=== PATIENT | female | born 1995 | race Caucasian/White ===

== ENCOUNTER 2017-01-31 18:49 | Observation (INO) | payer BC ==
[2017-01-31] MEDS ORDERED: SODIUM CHLORIDE 0.9% 1,000 ML IV STA (20:21)
[2017-01-31] MEDS ORDERED: RX INFO: IV CONTRAST WAS GIVEN 1 EACH MISC MISCELLANE PRN (20:21)
[2017-01-31] MEDS ORDERED: ONDANSETRON 4 MG/2 ML VIAL IVP STA (20:21)
[2017-01-31 20:55] LABS: Basophils # (A) 0.1 k/uL (0-0.2); Basophils % (A) 1 %; CH 31.7; CHCM 35.2; Eosinophils # (A) 0.5 k/uL (0-0.7); Eosinophils % (A) 4 %; HCT 43.4 % (34.0-46.0); HDW 2.86; HGB 14.6 gm/dL (11.4-16.0); Luc # (Auto) 0.24; Luc % (Auto) 2; Lymphocytes # (A) 2.8 k/uL (1.0-4.8); Lymphocytes % (A) 24 %; MCH 30.3 pg (25.0-35.0); MCHC 33.5 g/dL (31.0-37.0); MCV 90.5 fL (80.0-100.0); Monocytes # (A) 0.8 k/uL (0-1.0); Monocytes % (A) 7 %; Neutrophils % (A) 61 %; RDW 13.3 % (11.5-15.5); WBC 11.4 k/uL (3.8-10.6); WBC (Perox) 11.57
[2017-01-31 21:03] LABS: ALT 48 U/L (9-52); AST 30 U/L (14-36); Alkaline Phosphatase 82 U/L (38-126); Amylase <30 U/L (30-110); Anion Gap 11 mmol/L; Blood Urea Nitrogen 15 mg/dL (7-17); Calcium 9.5 mg/dL (8.4-10.2); Carbon Dioxide 27 mmol/L (22-30); Chloride 105 mmol/L (98-107); Glucose 86 mg/dL (74-99); Non-African American GFR(MDRD) >60 (>60 ml/min/1.73 sqM); Potassium 3.9 mmol/L (3.5-5.1); Sodium 143 mmol/L (137-145); Total Bilirubin 0.5 mg/dL (0.2-1.3); Total Protein 7.6 g/dL (6.3-8.2)
[2017-01-31 21:06] LABS: Appearance,Urine Clear (Clear); Bilirubin,Urine Negative (Negative); Glucose,Urine (UA) Negative (Negative); Ketones,Urine 1+ (Negative); Nitrite,Urine Negative (Negative); PH, Urine 5.5 (5.0-8.0); Protein,Urine Trace (Negative)
[2017-01-31 21:07] LABS: Leukocyte Esterase,Urine Trace (Negative); Mucus,Urine Occasional /hpf; Particle Count 8756; RBC,Urine 3 /hpf (0-5); Squamous Epithelial Cell,Urine 7 /hpf (0-4); UA Billing (MACRO vs. MICRO) MICRO; WBC,Urine 3 /hpf (0-5)
--- NOTE | 2017-01-31 21:13 | ED ---
Abdominal Pain HPI - General Source: patient, RN notes reviewed Mode of arrival: ambulatory Limitations: no limitations <Robe Sheldon - Last Filed: 01/31/17 22:05> <Fabrice Gonzales - Last Filed: 01/31/17 22:17> - General Chief Complaint: Abdominal Pain Stated Complaint: POSS APPENDIX Time Seen by Provider: 01/31/17 20:21 - History of Present Illness Initial Comments: 21-year-old female presented emergency Department from Dr. Moon's office to rule out appendicitis. Patient states that she's had right lower quadrant abdominal pain nausea vomiting since Tuesday night. She states that she generalized feels ill. Patient has no reported fever. Patient does complain of pain and right lower also in epigastric region. Denies heartburn, chest pain , shortness breath, diarrhea constipation. Denies a chance , dysuria or hematuria. (Robe Sheldon) - Related Data Home Medications Medication Instructions Recorded Confirmed No Known Home Medications [No 01/31/17 01/31/17 Known Home Medications] Allergies Allergy/AdvReac Type Severity Reaction Status Date / Time No Known Allergies Allergy Verified 01/31/17 20:27 Review of Systems ROS Other: All systems not noted in ROS Statement are negative. <Robe Sheldon - Last Filed: 01/31/17 22:05> ROS Other: All systems not noted in ROS Statement are negative. <Fabrice Gonzales - Last Filed: 01/31/17 22:17> ROS Statement: Those systems with pertinent positive or pertinent negative responses have been documented in the HPI. Past Medical History Past Medical History: No Reported History History of Any Multi-Drug Resistant Organisms: None Reported Past Surgical History: No Surgical Hx Reported Past Psychological History: No Psychological Hx Reported Smoking Status: Never smoker Past Alcohol Use History: Occasional Past Drug Use History: None Reported <Robe Sheldon - Last Filed: 01/31/17 22:05> General Exam Limitations: no limitations General appearance: alert, in no apparent distress Head exam: Present: atraumatic, normocephalic, normal inspection Respiratory exam: Present: normal lung sounds bilaterally. Absent: respiratory distress, wheezes, rales, rhonchi, stridor Cardiovascular Exam: Present: regular rate, normal rhythm, normal heart sounds. Absent: systolic murmur, diastolic murmur, rubs, gallop, clicks GI/Abdominal exam: Present: soft, tenderness (moderate epigastric and right lower quadrant tenderness), normal bowel sounds. Absent: distended, guarding, rebound, rigid Back exam: Absent: CVA tenderness (R), CVA tenderness (L) Skin exam: Present: warm, dry, intact, normal color. Absent: rash <Robe Sheldon - Last Filed: 01/31/17 22:05> Course <Robe Sheldon - Last Filed: 01/31/17 22:05> <Fabrice Gonzales - Last Filed: 01/31/17 22:17> Vital Signs 01/31/17 01/31/17 19:51 20:49 Temperature 98.7 F Pulse Rate 81 72 Respiratory 16 18 Rate Blood Pressure 127/80 127/75 O2 Sat by Pulse 100 100 Oximetry - Reevaluation(s) Reevaluation #1: 01/31/17 I did personally do a [id number]-to-lmbw evaluation the patient did discuss findings the patient and her family members. Patient does demonstrate evidence of appendicitis with pain since 3 days ago right lower quadrant she is tenderness right lower quadrant with evidence of a Rovsing sign. She does a low -grade white blood cell count and CT evidence of acute appendicitis with inflammation but no abscess formation. I did discuss the case with Dr. Ohara. Patient be admitted patient IV antibiotics and fluids with plans for appendectomy in the a.m. (Fabrice Gonzales) Medical Decision Making - Lab Data Result diagrams: 01/31/17 20:37 01/31/17 20:37 <Robe Sheldon - Last Filed: 01/31/17 22:05> - Lab Data Result diagrams: 01/31/17 20:37 01/31/17 20:37 <Fabrice Gonzales - Last Filed: 01/31/17 22:17> - Lab Data Lab Results 01/31/17 01/31/17 01/31/17 Range/Units 20:37 20:37 20:37 WBC 11.4 H (3.8-10.6) k/uL RBC 4.80 (3.80-5.40) m/uL Hgb 14.6 (11.4-16.0) gm/dL Hct 43.4 (34.0-46.0) % MCV 90.5 (80.0-100.0) fL MCH 30.3 (25.0-35.0) pg MCHC 33.5 (31.0-37.0) g/dL RDW 13.3 (11.5-15.5) % Plt Count 395 (150-450) k/uL Neutrophils % 61 % Lymphocytes % 24 % Monocytes % 7 % Eosinophils % 4 % Basophils % 1 % Neutrophils # 7.0 (1.3-7.7) k/uL Lymphocytes # 2.8 (1.0-4.8) k/uL Monocytes # 0.8 (0-1.0) k/uL Eosinophils # 0.5 (0-0.7) k/uL Basophils # 0.1 (0-0.2) k/uL Sodium 143 (137-145) mmol/L Potassium 3.9 (3.5-5.1) mmol/L Chloride 105 (98-107) mmol/L Carbon Dioxide 27 (22-30) mmol/L Anion Gap 11 mmol/L BUN 15 (7-17) mg/dL Creatinine 0.80 (0.52-1.04) mg/dL Est GFR (MDRD) Af Amer >60 (>60 ml/min/1.73 sqM) Est GFR (MDRD) Non-Af >60 (>60 ml/min/1.73 sqM) Glucose 86 (74-99) mg/dL Calcium 9.5 (8.4-10.2) mg/dL Total Bilirubin 0.5 (0.2-1.3) mg/dL AST 30 (14-36) U/L ALT 48 (9-52) U/L Alkaline Phosphatase 82 (38-126) U/L Total Protein 7.6 (6.3-8.2) g/dL Albumin 4.4 (3.5-5.0) g/dL Amylase <30 L (30-110) U/L Lipase 35 (23-300) U/L Urine Color Urine Appearance (Clear) Urine pH (5.0-8.0) Ur Specific [place] (1.001-1.035) Urine Protein (Negative) Urine Glucose (UA) (Negative) Urine Ketones (Negative) Urine Blood (Negative) Urine Nitrite (Negative) Urine Bilirubin (Negative) Urine Urobilinogen (<2.0) mg/dL Ur Leukocyte Esterase (Negative) Urine RBC (0-5) /hpf Urine WBC (0-5) /hpf Ur Squamous Epith Cells (0-4) /hpf Urine Mucus (None) /hpf Urine HCG, Qual Not Detected (Not Detectd) 01/31/17 Range/Units 20:37 WBC (3.8-10.6) k/uL RBC (3.80-5.40) m/uL Hgb (11.4-16.0) gm/dL Hct (34.0-46.0) % MCV (80.0-100.0) fL MCH (25.0-35.0) pg MCHC (31.0-37.0) g/dL RDW (11.5-15.5) % Plt Count (150-450) k/uL Neutrophils % % Lymphocytes % % Monocytes % % Eosinophils % % Basophils % % Neutrophils # (1.3-7.7) k/uL Lymphocytes # (1.0-4.8) k/uL Monocytes # (0-1.0) k/uL Eosinophils # (0-0.7) k/uL Basophils # (0-0.2) k/uL Sodium (137-145) mmol/L Potassium (3.5-5.1) mmol/L Chloride (98-107) mmol/L Carbon Dioxide (22-30) mmol/L Anion Gap mmol/L BUN (7-17) mg/dL Creatinine (0.52-1.04) mg/dL Est GFR (MDRD) Af Amer (>60 ml/min/1.73 sqM) Est GFR (MDRD) Non-Af (>60 ml/min/1.73 sqM) Glucose (74-99) mg/dL Calcium (8.4-10.2) mg/dL Total Bilirubin (0.2-1.3) mg/dL AST (14-36) U/L ALT (9-52) U/L Alkaline Phosphatase (38-126) U/L Total Protein (6.3-8.2) g/dL Albumin (3.5-5.0) g/dL Amylase (30-110) U/L Lipase (23-300) U/L Urine Color Yellow Urine Appearance Clear (Clear) Urine pH 5.5 (5.0-8.0) Ur Specific [place] 1.030 (1.001-1.035) Urine Protein Trace H (Negative) Urine Glucose (UA) Negative (Negative) Urine Ketones 1+ H (Negative) Urine Blood Negative (Negative) Urine Nitrite Negative (Negative) Urine Bilirubin Negative (Negative) Urine Urobilinogen 2.0 (<2.0) mg/dL Ur Leukocyte Esterase Trace H (Negative) Urine RBC 3 (0-5) /hpf Urine WBC 3 (0-5) /hpf Ur Squamous Epith Cells 7 H (0-4) /hpf Urine Mucus Occasional H (None) /hpf Urine HCG, Qual (Not Detectd) Disposition <Robe Sheldon - Last Filed: 01/31/17 22:05> <Fabrice Gonzales - Last Filed: 01/31/17 22:17> Clinical Impression: Acute appendicitis Disposition: ADMITTED IP TO THIS HOSP Condition: Stable Referrals: Telma Moon MD [Primary Care Provider] - 1-2 days
--- NOTE | 2017-01-31 22:02 | CT ---
EXAMINATION TYPE: CT abdomen pelvis w con DATE OF EXAM: 01/31/2017 COMPARISON: NONE HISTORY: RLQ pain CT DLP: 1387.6 mGycm Automated exposure control for dose reduction was used. TECHNIQUE: Helical acquisition of images was performed from the lung bases through the pelvis. CONTRAST: Performed without Oral Contrast and with IV Contrast, patient injected with 100 mL of Omnipaque 300. FINDINGS: Lung bases are clear of consolidation. There is mild subsegmental atelectasis at the left lung base. There is no pleural effusion. Liver spleen pancreas gallbladder appear normal. Bile ducts are not dilated. There is no adrenal mass. Kidneys appear normal. There is no retroperitoneal adenopathy. There is no ascites. Bladder distends smoothly. There are small bilateral ovarian cysts. I see no intestinal wall thickening. There is thickening of the appendix with surrounding mild inflammatory changes. I see no bony destructive process. IMPRESSION: INFLAMMATORY CHANGES AND THICKENING OF THE APPENDIX CONSISTENT WITH ACUTE APPENDICITIS. NO ABSCESS.
[2017-01-31] MEDS ORDERED: PIPERACILLIN-TAZOBACTAM 3.375 GM in DEXTROSE/WATER 1 50ML.BAG IVPB STA (22:04)
[2017-01-31] MEDS ORDERED: ONDANSETRON 4 MG/2 ML VIAL IVP PRN (22:06)
[2017-01-31] MEDS ORDERED: NALOXONE 0.4 MG/ML 1 ML VIAL IV PRN (22:06)
[2017-01-31] MEDS ORDERED: HYDROmorphone 0.5 MG/0.5 ML SYRINGE IVP PRN (22:06)
[2017-01-31] MEDS ORDERED: HYDROcodone/APAP 5-325MG 1 EACH TAB PO PRN (22:06)
[2017-01-31 23:17] VITALS: BMI 35.6
[2017-02-01] MEDS ORDERED: HEPARIN SODIUM,PORCINE 5,000 UNIT/ML 1 ML VIAL SQ STA (06:04)
[2017-02-01] MEDS ORDERED: IV FLUID CONTINUATION 1,000 ML IV ONE (06:13)
[2017-02-01] MEDS ORDERED: ONDANSETRON 4 MG/2 ML VIAL IVP ONE ×2 (06:20→07:52)
[2017-02-01] MEDS ORDERED: DEXAMETHASONE SOD PHOS (MDV) 100 MG/10 ML VIAL IVP ONE (06:21)
[2017-02-01] MEDS ORDERED: SUCCINYLCHOLINE CHLORIDE 100 MG/5 ML SYR IV ONE (06:25)
[2017-02-01] MEDS ORDERED: HEPARIN SODIUM,PORCINE 5,000 UNIT/ML 1 ML VIAL ONE (06:25)
[2017-02-01] MEDS ORDERED: fentaNYL (PF) 50 MCG/ML 2 ML AMP ONE (06:25)
[2017-02-01] MEDS ORDERED: MIDAZOLAM 2 MG/2 ML VIAL ONE (06:25)
[2017-02-01] MEDS ORDERED: ROCURONIUM BROMIDE 10 MG/ML 10 ML VIAL IV ONE (06:25)
[2017-02-01] MEDS ORDERED: PROPOFOL 10 MG/ML 20 ML VIAL IV ONE (06:25)
[2017-02-01] MEDS ORDERED: LIDOCAINE 1% INJ 10MG/ML (20 ML MDV) ONE (06:25)
--- NOTE | 2017-02-01 06:27 | P.GSHP ---
History of Present Illness H&P Date: 02/01/17 Chief Complaint: Abdominal Pain this 21-year-old female who began experiencing abdominal pain periumbilical on Tuesday the pain moved on her right lower quadrant over the weekend and she will see her primary care physician who sent her to the emergency room. Further workup in the emergency room was consistent with acute appendicitis. She's never had any pain like this before. She denies any fevers or chills. She denies any nausea vomiting. Specimen all bowel movements. She hasn't had anything to eat for over 12 hours. Past Medical History Past Medical History: No Reported History History of Any Multi-Drug Resistant Organisms: None Reported Past Surgical History: No Surgical Hx Reported Past Psychological History: No Psychological Hx Reported Smoking Status: Never smoker Past Alcohol Use History: Occasional Past Drug Use History: None Reported - Past Family History Mother Additional Family Medical History / Comment(s): osteoporosis Father History Unknown: Yes Family Medical History: Hypertension Medications and Allergies Home Medications Medication Instructions Recorded Confirmed Type No Known Home Medications [No 01/31/17 01/31/17 History Known Home Medications] Allergies Allergy/AdvReac Type Severity Reaction Status Date / Time No Known Allergies Allergy Verified 01/31/17 20:27 Surgical - Exam Osteopathic Statement: *. No significant issues noted on an osteopathic structural exam other than those noted in the History and Physical/Consult. Vital Signs Temp Pulse Resp BP Pulse Ox 98.7 F 81 16 127/80 100 01/31/17 19:51 01/31/17 19:51 01/31/17 19:51 01/31/17 19:51 01/31/17 19:51 - General well developed, well nourished - Eyes PERRL - ENT normal pinna, normal nares - Neck trachea midline - Respiratory normal expansion, normal respiratory effort - Cardiovascular Rhythm: regular - Abdomen soft tender to palpation right lower quadrant no rebound rigidity or guarding. Abdomen: soft - Neurologic normal coordination, normal sensation - Psychiatric oriented to time, oriented to person, oriented to place, speech is normal Results - Labs 01/31/17 20:37 01/31/17 20:37 Abnormal Lab Results - Last 24 Hours (Table) 01/31/17 01/31/17 01/31/17 Range/Units 20:37 20:37 20:37 WBC 11.4 H (3.8-10.6) k/uL Amylase <30 L (30-110) U/L Urine Protein Trace H (Negative) Urine Ketones 1+ H (Negative) Ur Leukocyte Esterase Trace H (Negative) Ur Squamous Epith Cells 7 H (0-4) /hpf Urine Mucus Occasional H (None) /hpf Diabetes panel 01/31/17 Range/Units 20:37 Sodium 143 (137-145) mmol/L Potassium 3.9 (3.5-5.1) mmol/L Chloride 105 (98-107) mmol/L Carbon Dioxide 27 (22-30) mmol/L BUN 15 (7-17) mg/dL Creatinine 0.80 (0.52-1.04) mg/dL Glucose 86 (74-99) mg/dL Calcium 9.5 (8.4-10.2) mg/dL AST 30 (14-36) U/L ALT 48 (9-52) U/L Alkaline Phosphatase 82 (38-126) U/L Total Protein 7.6 (6.3-8.2) g/dL Albumin 4.4 (3.5-5.0) g/dL Calcium panel 01/31/17 Range/Units 20:37 Calcium 9.5 (8.4-10.2) mg/dL Albumin 4.4 (3.5-5.0) g/dL Pituitary panel 01/31/17 Range/Units 20:37 Sodium 143 (137-145) mmol/L Potassium 3.9 (3.5-5.1) mmol/L Chloride 105 (98-107) mmol/L Carbon Dioxide 27 (22-30) mmol/L BUN 15 (7-17) mg/dL Creatinine 0.80 (0.52-1.04) mg/dL Glucose 86 (74-99) mg/dL Calcium 9.5 (8.4-10.2) mg/dL Adrenal panel 01/31/17 Range/Units 20:37 Sodium 143 (137-145) mmol/L Potassium 3.9 (3.5-5.1) mmol/L Chloride 105 (98-107) mmol/L Carbon Dioxide 27 (22-30) mmol/L BUN 15 (7-17) mg/dL Creatinine 0.80 (0.52-1.04) mg/dL Glucose 86 (74-99) mg/dL Calcium 9.5 (8.4-10.2) mg/dL Total Bilirubin 0.5 (0.2-1.3) mg/dL AST 30 (14-36) U/L ALT 48 (9-52) U/L Alkaline Phosphatase 82 (38-126) U/L Total Protein 7.6 (6.3-8.2) g/dL Albumin 4.4 (3.5-5.0) g/dL - Imaging CT scan - abdomen: report reviewed, image reviewed Assessment and Plan Assessment: acute appendicitis Plan: laparoscopic appendectomy Patient was started on Zosyn IV Nothing by mouth IV fluids This plan was discussed with the patient and her parents at bedside. The risks benefits and alternatives to laparoscopic appendectomy including risks of bleeding infection damage surrounding tissue further operation and conversion to open were all discussed with the patient and her parents they stated they understood and were agreeable.
[2017-02-01] MEDS ORDERED: BUPIVACAINE (PF) 0.25% 30 ML VIAL SQ ONE (06:38)
[2017-02-01] MEDS ORDERED: LACTATED RINGERS 1,000 ML IV ONE ×2 (06:48→07:28)
[2017-02-01] MEDS ORDERED: NALOXONE 0.4 MG/ML 1 ML VIAL IV PRN (07:28)
--- NOTE | 2017-02-01 07:28 | P.OP ---
Date of Procedure: 02/01/17 Preoperative Diagnosis: Acute appendicitis Postoperative Diagnosis: Acute appendicitis Procedure(s) Performed: Laparoscopic appendectomy Anesthesia: GAL Surgeon: Reinier Ohara Estimated Blood Loss (ml): 10 Indications for Procedure: 21-year-old with clinical symptoms consistent with acute appendicitis Operative Findings: Acute appendicitis Description of Procedure: Patient was brought into the operative suite remained in the supine position underwent general endotracheal anesthesia per Department of anesthesia she was prepped and draped in the usual sterile fashion timeout was performed correct patient and correct procedure correct site was verified. A 2 cm incision was made in the left lower quadrant 12 mm Visiport was used to enter the abdomen under direct visualization the abdomen was insufflated no injuries were noted. 5 mm port was placed just superior to the umbilicus and a 5 mm port was placed suprapubic both under direct visualization. The patient was placed in Trendelenburg right side up. Adhesions of the omentum were taken down off of the appendix bluntly the appendix was grasped and retracted anteriorly. A LigaSure device was used to take down the mesoappendix to the base of the appendix at the cecum. 60mm schwartz load Endo LUCA stapler was used to staple across the base of the appendix at the cecum. The staple line was inspected hemostasis was noted. The appendix placed in Endo Catch bag and removed through the left lower quadrant port site this port site was then closed with 0 Vicryl suture with the aid of a Ray-Sapna suture passer. All ports were removed under direct visualization and the abdomen was desufflated. The skin was closed with 4-0 Monocryl suture and a subcuticular fashion. Skin glue was applied patient tolerated the procedure well there is no apparent complications
[2017-02-01] MEDS: HYDROmorphone 1 MG/ML 1 ML SYRINGE IVP ONE ×2 (07:34→07:39)
[2017-02-01 12:58] VITALS: BP 111/68; PULSE 62; RESP 12; TEMP 97.8
--- NOTE | 2017-02-01 13:47 | P.DS ---
Providers Date of admission: 01/31/17 22:15 Expected date of discharge: 02/01/17 Attending physician: Reinier Ohara DO Consults: 02/01/17 05:59 Consult Physician Routine Consulting Provider: [facility] Consult Reason/Comments: [facility] Do you want consulting provider notified?: Yes Primary care physician: Telma Moon [place] Course: 21-year-old female presented to the emergency room with a chief complaint of. Umbilical abdominal pain onset on Tuesday pain moved to her right lower quadrant over the weekend. Patient seen her primary care provider Dr. Moon who referred the patient to the emergency room. In the emergency room the workup was consistent for acute appendicitis. Patient had not had this pain in the past. There was no fever chills. No nausea vomiting. Patient has no significant past medical history. On February 01 patient underwent laparoscopic appendectomy for acute appendicitis. On the day of discharge surgical incision sites no evidence of any redness abdomen soft nontender tolerated diet no nausea no vomiting pain medication Tylenol and Motrin was effective for pain control urinating with no difficulty afebrile with a white count on the of 11.4. Patient had been up ambulating on the unit was anxious to be discharged home Impression discharge diagnosis Present on admission right lower quadrant abdominal pain suspect due to an acute appendicitis February 01 laparoscopic appendectomy for acute appendicitis Obesity BMI 35 The above impression and plan of care have been discussed and directed by signing physician. Patti Valiente nurse practitioner acting as scribe for signing physician. Patient Condition at Discharge: Stable Plan - Discharge Summary New Discharge Prescriptions: New Docusate [Colace] 100 mg PO DAILY PRN #30 capsule PRN Reason: Constipation Ibuprofen [Motrin] 400 mg PO Q6HR PRN #30 tab PRN Reason: Analgesia Acetaminophen Tab [Tylenol Tab] 325 mg PO Q6H #30 tablet Discharge Medication List Acetaminophen Tab [Tylenol Tab] 325 mg PO Q6H #30 tablet 02/01/17 [Rx] Docusate [Colace] 100 mg PO DAILY PRN #30 capsule 02/01/17 [Rx] Ibuprofen [Motrin] 400 mg PO Q6HR PRN #30 tab 02/01/17 [Rx] Follow up Appointment(s)/Referral(s): Telma Moon MD [Primary Care Provider] - 1-2 days Reinier Ohara DO [Doctor of Osteopathic Medicine] - 02/04/17 Activity/Diet/Wound Care/Special Instructions: No lifting greater than 4 pounds until seen in the follow-up surgical visit Shower daily no tub bath Notify surgical attending of any redness at surgical site increase abdominal pain nausea vomiting fever chills Discharge Disposition: HOME SELF-CARE
[2017-02-01] MEDS: SODIUM CHLORIDE 0.9% 1,000 ML IV SCH (14:38)
== END 2017-02-01 15:05 | disposition home or self-care (01) ==
LOC: EC 18:49 → 6PED 22:15 → INTOOBSV 22:15
PROVIDERS: ADMIT Student in an Organized Health Care Education/Training Program; ATTEND Student in an Organized Health Care Education/Training Program
DX: K35.80 Unspecified acute appendicitis (principal); E66.9 Obesity, unspecified; Z68.35 Body mass index [BMI] 35.0-35.9, adult
CPT/HCPCS: 44970; 99285 ×2; 96365 ×2; 96375 ×2; 96361 ×2; 96366 ×2; 36415; 81025 ×2; 88304; 80053; 82150; 83690; 85025; 81001; 74177; G0378 ×2; J2250; J1644; J2405 ×2; J2001; J3010; J1170 ×2; J2543; Q9967; J1100; J0330; J2704

== ENCOUNTER → 2017-05-27 | Outpatient (CLI) | payer BC ==
--- NOTE | 2017-05-27 08:34 | US ---
EXAMINATION TYPE: US abdomen complete DATE OF EXAM: 05/27/2017 COMPARISON: 01/31/2017 CLINICAL HISTORY: 21-year-old female with R10.9 ABD PAIN, noted along the left abdomen during physica l exam; nausea and vomiting x 2 weeks TECHNIQUE: Multiple sonographic images of the abdomen are obtained. FINDINGS: Liver Length: 12.6 cm Gallbladder Wall: 0.2 cm CBD: 0.3 cm Spleen: 12.4 cm Right Kidney: 10.5 x 5.8 x 4.0 cm Left Kidney: 10.7 x 4.9 x 3.4 cm Pancreas: Obscured by bowel gas Liver: Echogenic and mildly attenuating. A small hypoechoic area at the jose hepatis suggests focal fatty sparing. Gallbladder: No abnormal gallbladder distention, wall thickening, pericholecystic fluid, or shadowin g calculi. Evidence for sonographic Siddiqi's sign: No CBD: wnl Spleen: wnl Right Kidney: No hydronephrosis Left Kidney: No hydronephrosis Upper IVC: Obscured. Abd Aorta: wnl IMPRESSION: Suboptimal visualization of the pancreas and upper abdominal IVC. Otherwise, unremarkable sonographic examination of the abdomen.
== END | disposition home or self-care (01) ==
LOC: RADUSWWP 06:55
PROVIDERS: ATTEND Family Medicine
DX: R10.9 Unspecified abdominal pain (principal)
CPT/HCPCS: 76700

== ENCOUNTER → 2017-06-17 | Outpatient (CLI) | payer BC ==
--- NOTE | 2017-06-17 09:06 | NM ---
EXAMINATION TYPE: NM hepatobiliary w EF DATE OF EXAM: 06/17/2017 COMPARISON: NONE HISTORY: Abdominal pain associated with nausea and vomiting TECHNIQUE: After the intravenous administration of 5.38 mCi Tc 99m Mebrofenin hepatobiliary scintigra phy is performed. Immediate images post injection. FINDINGS: There is satisfactory initial accumulation of tracer by the liver. The gallbladder is visualized wit hin 8 minutes. The small bowel activity is noted within 58 minutes. At one hour 8 ounces of oral en sure plus is given to mimic CCK and gallbladder ejection fraction is calculated at 78 %, in the miguel l range. Therefore there is no scintigraphic evidence of cystic or common bile duct obstruction to s uggest acute cholecystitis or gallbladder dyskinesia. IMPRESSION: No scintigraphic evidence of acute cholecystitis, chronic cholecystitis or biliary dyskin esia.
== END | disposition home or self-care (01) ==
LOC: RADNMMAIN 06:52
PROVIDERS: ATTEND Family Medicine
DX: R10.9 Unspecified abdominal pain (principal)
CPT/HCPCS: 78226; A9537

== ENCOUNTER → 2017-08-15 | Outpatient (CLI) | payer BC ==
--- NOTE | 2017-08-15 14:45 | XR ---
EXAMINATION TYPE: XR chest 2V DATE OF EXAM: 08/15/2017 COMPARISON: NONE HISTORY: Fever. TECHNIQUE: Frontal and lateral views of the chest are obtained. FINDINGS: Somewhat low lung volumes are present. There is no focal air space opacity, pleural effusi on, or pneumothorax seen. The cardiac silhouette size is within normal limits. The osseous structu res are intact. IMPRESSION: No suspicious acute air space opacity is seen.
--- NOTE | 2017-08-15 14:47 | XR ---
EXAMINATION TYPE: XR lumbar spine 2 or 3V DATE OF EXAM: 08/15/2017 CLINICAL HISTORY: Low back pain with extremity numbness. TECHNIQUE: Frontal and lateral images of the lumbar spine are obtained. COMPARISON: None FINDINGS: There are 5 lumbar type vertebral bodies identified given [place] of hypoplastic bilate ral T12 ribs. The lumbar spine shows stable and satisfactory alignment without evidence of acute fra cture or dislocation. There is mild to moderate disc space narrowing L5-S1 level redemonstrated other aguirre vertebral body heights and disk space heights are within normal limits. The overlying soft tis eric appears unremarkable. IMPRESSION: Stable disc space narrowing lumbosacral junction. No suspicious large disc herniation see n on review of prior CT.
== END | disposition home or self-care (01) ==
LOC: RADXRMAIN 14:07
PROVIDERS: ATTEND Internal Medicine
DX: M48.07 Spinal stenosis, lumbosacral region (principal); R50.9 Fever, unspecified
CPT/HCPCS: 71046; 72100

== ENCOUNTER 2019-02-01 18:56 | Emergency (ER) | payer BC ==
[2019-02-01 19:05] VITALS: TEMP 97.9
[2019-02-01 19:42] LABS: Basophils # (A) 0.2 k/uL (0-0.2); Basophils % (A) 2 %; Eosinophils # (A) 0.5 k/uL (0-0.7); Eosinophils % (A) 4 %; HCT 39.7 % (34.0-46.0); HGB 12.1 gm/dL (11.4-16.0); Lymphocytes # (A) 2.7 k/uL (1.0-4.8); Lymphocytes % (A) 23 %; MCH 26.8 pg (25.0-35.0); MCHC 30.4 g/dL (31.0-37.0); MCV 88.3 fL (80.0-100.0); Mean Platelet Volume 5.9; Monocytes # (A) 0.8 k/uL (0-1.0); Monocytes % (A) 7 %; Neutrophils # (A) 7.2 k/uL (1.3-7.7); Neutrophils % (A) 61 %; Platelet Count 389 k/uL (150-450); RDW 12.6 % (11.5-15.5); WBC 11.7 k/uL (3.8-10.6)
[2019-02-01 19:53] LABS: ALT 65 U/L (9-52); AST 43 U/L (14-36); African American GFR (CKD) >90 (>60 ml/min/1.73 sqM); Albumin 4.3 g/dL (3.5-5.0); Alkaline Phosphatase 85 U/L (38-126); Anion Gap 11 mmol/L; Blood Urea Nitrogen 11 mg/dL (7-17); Calcium 9.4 mg/dL (8.4-10.2); Carbon Dioxide 24 mmol/L (22-30); Chloride 105 mmol/L (98-107); Glucose 94 mg/dL (74-99); Sodium 140 mmol/L (137-145); Total Bilirubin 0.6 mg/dL (0.2-1.3); Total Protein 7.4 g/dL (6.3-8.2)
--- NOTE | 2019-02-01 19:55 | ED ---
General Adult HPI - General Chief complaint: Vaginal Bleeding Stated complaint: 6wks pg bleeding Time Seen by Provider: 02/01/19 19:09 Source: patient, RN notes reviewed, old records reviewed Mode of arrival: ambulatory Limitations: no limitations - History of Present Illness Initial comments: 23-year-old female patient approximately 6 weeks gestation presents to the chief complaint of painless vaginal bleeding. Patient reports that approximately 2 hours ago she went and urinated, noticed blood in her urine. Patient then went to the emergency department. Is worse this urinated again and is not noticing more bleeding. Denies any abdominal pain. Does not know blood type. Denies any other complaints. Systemic: Pt denies fatigue, fever/chills, rash. Pt denies weakness, night sweats, weight loss. Neuro: Pt denies headache, visual disturbances, syncope or pre-syncope. HEENT: Pt denies ocular discharge or irritation, otalgia, rhinorrhea, pharyngitis or notable lymphadenopathy. Cardiopulmonary: Pt denies chest pain, SOB, heart palpitations, dyspnea on exertion. Abdominal/GI: Pt denies abdominal pain, n/v/d. : Pt denies dysuria, burning w/ urination, frequency/urgency. Denies new onset urinary or bowel incontinence. MSK: Pt denies myalgia, loss of strength or function in extremities. Neuro: Pt denies new onset weakness, paresthesias. - Related Data Previous Rx's Medication Instructions Recorded Acetaminophen Tab [Tylenol Tab] 325 mg PO Q6H #30 tablet 02/01/17 Docusate [Colace] 100 mg PO DAILY PRN #30 capsule 02/01/17 Ibuprofen [Motrin] 400 mg PO Q6HR PRN #30 tab 02/01/17 Cephalexin [Keflex] 500 mg PO Q12HR 7 Days #14 cap 02/01/19 Allergies Allergy/AdvReac Type Severity Reaction Status Date / Time No Known Allergies Allergy Verified 02/01/19 19:05 Review of Systems ROS Statement: Those systems with pertinent positive or pertinent negative responses have been documented in the HPI. ROS Other: All systems not noted in ROS Statement are negative. Past Medical History Past Medical History: No Reported History History of Any Multi-Drug Resistant Organisms: None Reported Past Surgical History: Appendectomy Past Psychological History: No Psychological Hx Reported Smoking Status: Never smoker Past Alcohol Use History: Occasional Past Drug Use History: None Reported - Past Family History Mother Additional Family Medical History / Comment(s): osteoporosis Father History Unknown: Yes Family Medical History: Hypertension General Exam - General Exam Comments Initial Comments: Constitutional: NAD, AOX3, Pt has pleasant affect. HEENT: NC/AT, trachea midline, neck supple, no lymphadenopathy. Posterior pharynx non erythematous, without exudates. External ears appear normal, without discharge. Mucous membranes moist. Eyes PERRLA, EOM intact. There is no scleral icterus. No pallor noted. Cardiopulmonary: RRR, no murmurs, rubs or gallops, no JVD noted. Lungs CTAB in anterior and posterior carvajal. No peripheral edema. Abdominal exam: Abdomen soft and non-distended. Abdomen non-tender to palpation in all 4 quadrants. Bowel sounds active in LLQ. No hepatosplenomegaly. No ecchymosis Neuro: CN II-XII grossly intact. No nuchal rigidity. No raccon eyes, no whitfield sign, no hemotympanum. No cervical spinal tenderness. MSK: No posterior calf tenderness bilaterally, homans sign negative bilaterally. Posterior tibialis and radial pulse +2 bilaterally. Sensation intact in upper and lower extremities. Full active ROM in upper and lower extremities, 5/5 streg nth. Limitations: no limitations Course Vital Signs 02/01/19 19:02 Temperature 97.9 F Pulse Rate 97 Respiratory 20 Rate Blood Pressure 127/84 O2 Sat by Pulse 98 Oximetry Medical Decision Making - Medical Decision Making 23-year-old female patient approximately 6 weeks gestation presents to the chief complaint of painless vaginal bleeding. Patient reports that approximately 2 hours ago she went and urinated, noticed blood in her urine. Patient then went to the emergency department. Is worse this urinated again and is not noticing more bleeding. Denies any abdominal pain. Does not know blood type. Denies any other complaints. A vital signs stable, afebrile. Physical exam didn't display acute pathology. Laboratory investigations revealed hCG Quant of 11,828, 60 red blood cells, 23 white blood cells, 18 g a pill cells. Patient is blood type A-. Patient initiated on RhoGAM. Patient will be treated for asymptomatic bacteriuria with Keflex. Ultrasound displayed intrauterine gestational sac. Small yolk sac 5 mm. Cannot demonstrate cardiac activity. Follow-up exam recommended in 7 days. These findings were discussed with The patient. Patient discharged with Keflex and close outpatient follow-up with OB. Case discussed with Dr. Forman. - Lab Data Result diagrams: 02/01/19 19:30 02/01/19 19:30 Lab Results 02/01/19 02/01/19 02/01/19 Range/Units 19:30 19:30 19:30 WBC 11.7 H (3.8-10.6) k/uL RBC 4.50 (3.80-5.40) m/uL Hgb 12.1 (11.4-16.0) gm/dL Hct 39.7 (34.0-46.0) % MCV 88.3 (80.0-100.0) fL MCH 26.8 (25.0-35.0) pg MCHC 30.4 L (31.0-37.0) g/dL RDW 12.6 (11.5-15.5) % Plt Count 389 (150-450) k/uL Neutrophils % 61 % Lymphocytes % 23 % Monocytes % 7 % Eosinophils % 4 % Basophils % 2 % Neutrophils # 7.2 (1.3-7.7) k/uL Lymphocytes # 2.7 (1.0-4.8) k/uL Monocytes # 0.8 (0-1.0) k/uL Eosinophils # 0.5 (0-0.7) k/uL Basophils # 0.2 (0-0.2) k/uL Sodium 140 (137-145) mmol/L Potassium 4.0 (3.5-5.1) mmol/L Chloride 105 (98-107) mmol/L Carbon Dioxide 24 (22-30) mmol/L Anion Gap 11 mmol/L BUN 11 (7-17) mg/dL Creatinine 0.73 (0.52-1.04) mg/dL Est GFR (CKD-EPI)AfAm >90 (>60 ml/min/1.73 sqM) Est GFR (CKD-EPI)NonAf >90 (>60 ml/min/1.73 sqM) Glucose 94 (74-99) mg/dL Calcium 9.4 (8.4-10.2) mg/dL Total Bilirubin 0.6 (0.2-1.3) mg/dL AST 43 H (14-36) U/L ALT 65 H (9-52) U/L Alkaline Phosphatase 85 (38-126) U/L Total Protein 7.4 (6.3-8.2) g/dL Albumin 4.3 (3.5-5.0) g/dL HCG, Quant 30558.8 mIU/mL Urine Color Urine Appearance (Clear) Urine pH (5.0-8.0) Ur Specific [place] (1.001-1.035) Urine Protein (Negative) Urine Glucose (UA) (Negative) Urine Ketones (Negative) Urine Blood (Negative) Urine Nitrite (Negative) Urine Bilirubin (Negative) Urine Urobilinogen (<2.0) mg/dL Ur Leukocyte Esterase (Negative) Urine RBC (0-5) /hpf Urine WBC (0-5) /hpf Ur Squamous Epith Cells (0-4) /hpf Urine Bacteria (None) /hpf Hyaline Casts (0-2) /lpf Urine Mucus (None) /hpf Blood Type A Negative Blood Type Confirm Blood Type Recheck No Previous Record Bld Type Recheck Status CABO Indicated Antibody Screen 02/01/19 02/01/19 02/01/19 Range/Units 19:30 20:35 20:50 WBC (3.8-10.6) k/uL RBC (3.80-5.40) m/uL Hgb (11.4-16.0) gm/dL Hct (34.0-46.0) % MCV (80.0-100.0) fL MCH (25.0-35.0) pg MCHC (31.0-37.0) g/dL RDW (11.5-15.5) % Plt Count (150-450) k/uL Neutrophils % % Lymphocytes % % Monocytes % % Eosinophils % % Basophils % % Neutrophils # (1.3-7.7) k/uL Lymphocytes # (1.0-4.8) k/uL Monocytes # (0-1.0) k/uL Eosinophils # (0-0.7) k/uL Basophils # (0-0.2) k/uL Sodium (137-145) mmol/L Potassium (3.5-5.1) mmol/L Chloride (98-107) mmol/L Carbon Dioxide (22-30) mmol/L Anion Gap mmol/L BUN (7-17) mg/dL Creatinine (0.52-1.04) mg/dL Est GFR (CKD-EPI)AfAm (>60 ml/min/1.73 sqM) Est GFR (CKD-EPI)NonAf (>60 ml/min/1.73 sqM) Glucose (74-99) mg/dL Calcium (8.4-10.2) mg/dL Total Bilirubin (0.2-1.3) mg/dL AST (14-36) U/L ALT (9-52) U/L Alkaline Phosphatase (38-126) U/L Total Protein (6.3-8.2) g/dL Albumin (3.5-5.0) g/dL HCG, Quant mIU/mL Urine Color Yellow Urine Appearance Cloudy H (Clear) Urine pH 5.5 (5.0-8.0) Ur Specific [place] 1.025 (1.001-1.035) Urine Protein Trace H (Negative) Urine Glucose (UA) Negative (Negative) Urine Ketones Trace H (Negative) Urine Blood Large H (Negative) Urine Nitrite Negative (Negative) Urine Bilirubin Negative (Negative) Urine Urobilinogen <2.0 (<2.0) mg/dL Ur Leukocyte Esterase Moderate H (Negative) Urine RBC 60 H (0-5) /hpf Urine WBC 23 H (0-5) /hpf Ur Squamous Epith Cells 18 H (0-4) /hpf Urine Bacteria Occasional H (None) /hpf Hyaline Casts 1 (0-2) /lpf Urine Mucus Rare H (None) /hpf Blood Type Blood Type Confirm A Negative Blood Type Recheck Bld Type Recheck Status Antibody Screen NEGATIVE Disposition Clinical Impression: Vaginal bleeding, Asymptomatic bacteriuria Disposition: HOME SELF-CARE Condition: Stable Instructions (If sedation given, give patient instructions): Non-Threatening First Trimester Vaginal Bleed (ED) Additional Instructions: Patient to adhere to previously discussed treatment plan and will take medication(s) as directed. Patient to follow up with PCP in 1-2 days. Patient to return to ED if symptoms do not improve. Follow with [facility] tomorrow. Take medication as directed. Return to ER if condition worsens. Prescriptions: Cephalexin [Keflex] 500 mg PO Q12HR 7 Days #14 cap Is patient prescribed a controlled substance at d/c from ED?: No Referrals: Telma Moon MD [Primary Care Provider] - 1-2 days
[2019-02-01 20:10] LABS: HCG,Quantitative Serum 11828.8 mIU/mL
--- NOTE | 2019-02-01 20:50 | US ---
EXAMINATION TYPE: Transabdominal DATE OF EXAM: 02/01/2019 8:23 PM COMPARISON: No previous for this . CT 2017. CLINICAL HISTORY: pain. Pain per order. Vaginal bleeding x 2 hours. Hx ovarian cysts. . EXAM PERFORMED: Transvaginal (TV) and Transabdominal (TA) EXAM MEASUREMENTS: GESTATIONAL AGE / DATING Physician Established: (6 weeks/6 days) EDC: 09/21/2019 Dates by LMP: Does not correlate (12 weeks/2 days) EDC: 08/14/2019 Dates by First Scan: This is first scan Dates by Current Scan for: (5 weeks/6 days) EDC: 09/28/2019 MATERNAL ANATOMY Uterus: 8.2 x 6.0 x 4.6 cm. Right Ovary: 3.2 x 1.9 x 2.0 cm. Left Ovary: 2.9 x 2.2 x 2.1 cm. Post CDS / Adnexa: fluid seen Presence of free fluid: in CDS Presence of corpus luteal cyst: Area of mixed echogenicity and peripheral vascularity seen in right o vary measurin.0 x 1.6 x 1.5 cm. Presence of subchorionic bleed: Hypoechoic area seen adjacent to the gestational sac measurin.6 x 1.9 x 0.8 cm. GESTATION / SURVEY CRL: 0.47 cm. (6 weeks/1 day) MSD: 1.36 cm. (5 weeks/4 days) Yolk Sac (normal less than 6mm): 3.1 mm Gestational sac seen with possible pole and yolk sac. Unable to visualize heart tones at this time possibly due to early gestation. Date of LMP: 11/07/2018 IMPRESSION: Intrauterine gestational sac. Small yolk sac 5 mm pole. We could not demonstrate cardiac activity. The possibility of demise should BE considered. Follow-up exam recommended in 7 days to confirm heartbeat.
[2019-02-01 21:10] LABS: Appearance,Urine Cloudy (Clear); Bacteria,Urine Occasional /hpf; Bilirubin,Urine Negative (Negative); Blood,Urine Large (Negative); Color,Urine Yellow; Glucose,Urine (UA) Negative (Negative); Hyaline Casts,Urine 1 /lpf (0-2); Ketones,Urine Trace (Negative); Leukocyte Esterase,Urine Moderate (Negative); Mucus,Urine Rare /hpf; Nitrite,Urine Negative (Negative); PH, Urine 5.5 (5.0-8.0); Protein,Urine Trace (Negative); RBC,Urine 60 /hpf (0-5); Specific Gravity,Urine 1.025 (1.001-1.035); Squamous Epithelial Cell,Urine 18 /hpf (0-4); Urobilinogen,Urine <2.0 mg/dL (<2.0)
[2019-02-01] MEDS ORDERED: Rhogam IMMUNE GLOBULIN 1,500 UNIT/1 ML IM ONE (21:14)
[2019-02-01] MEDS ORDERED: CEPHALEXIN 500MG STARTER PACK 4 CAP BTL PO STA (21:21)
[2019-02-01] MEDS ORDERED: CEPHALEXIN 500 MG CAP PO STA (21:21)
[2019-02-01 22:49] VITALS: BP 124/72; PULSE 90; RESP 18
== END 2019-02-01 22:46 | disposition home or self-care (01) ==
LOC: EC 18:56
DX: O20.9 Hemorrhage in early pregnancy, unspecified (principal); O99.89 Other specified diseases and conditions complicating pregnancy, childbirth and the puerperium; R82.71 Bacteriuria; Z67.11 Type A blood, Rh negative; Z90.49 Acquired absence of other specified parts of digestive tract; Z3A.01 Less than 8 weeks gestation of pregnancy
CPT/HCPCS: 36415; 86900; 86901; 80053; 85025; 86850; 81001; 84702; 87086; 76801; 76817; 99284; 96372; J2791

== ENCOUNTER 2019-02-02 17:38 | Emergency (ER) | payer BC ==
[2019-02-02 18:01] VITALS: RESP 18
[2019-02-02] MEDS ORDERED: ACETAMINOPHEN TAB 500 MG TAB PO STA (18:50)
--- NOTE | 2019-02-02 19:27 | ED ---
Female Urogenital HPI - General Chief complaint: Vaginal Bleeding Stated complaint: recheck-6wks preg, bleeding Time Seen by Provider: 02/02/19 18:09 Source: patient Mode of arrival: ambulatory Limitations: no limitations - History of Present Illness Initial comments: Patient is a 23-year-old female presenting to the emergency Department with complaints of vaginal bleeding and lower abdominal cramping that has increased since yesterday. Patient is approximately 5-6 weeks . Patient was in the ER yesterday for vaginal bleeding. Ultrasound, blood work, UA were all reviewed from yesterday. Patient states the bleeding has increased today and she is passing clots as well as having a significant more lower abdominal cramping. Patient denies fever, chills, nausea, vomiting. Patient has no other complaints at this time. Patient did see Dr. Cartagena and approximately 4 days ago and does have another follow-up scheduled for next week. - Related Data Previous Rx's Medication Instructions Recorded Acetaminophen Tab [Tylenol Tab] 325 mg PO Q6H #30 tablet 02/01/17 Docusate [Colace] 100 mg PO DAILY PRN #30 capsule 02/01/17 Ibuprofen [Motrin] 400 mg PO Q6HR PRN #30 tab 02/01/17 Cephalexin [Keflex] 500 mg PO Q12HR 7 Days #14 cap 02/01/19 Allergies Allergy/AdvReac Type Severity Reaction Status Date / Time No Known Allergies Allergy Verified 02/02/19 18:01 Review of Systems ROS Statement: Those systems with pertinent positive or pertinent negative responses have been documented in the HPI. ROS Other: All systems not noted in ROS Statement are negative. Past Medical History Past Medical History: No Reported History History of Any Multi-Drug Resistant Organisms: None Reported Past Surgical History: Appendectomy Past Psychological History: No Psychological Hx Reported Smoking Status: Never smoker Past Alcohol Use History: Occasional Past Drug Use History: None Reported - Past Family History Mother Additional Family Medical History / Comment(s): osteoporosis Father History Unknown: Yes Family Medical History: Hypertension General Exam - General Exam Comments Initial Comments: GENERAL: Well-appearing, well-nourished and in no acute distress. HEAD: Atraumatic, normocephalic. EYES: Pupils equal round and reactive to light, extraocular movements intact, sclera anicteric, conjunctiva are normal. ENT: Moist mucous membranes. NECK: Normal range of motion, supple without lymphadenopathy or JVD. LUNGS: Breath sounds clear to auscultation bilaterally and equal. No wheezes rales or rhonchi. HEART: Regular rate and rhythm without murmurs, rubs or gallops. ABDOMEN: Mild suprapubic tenderness. Soft, normoactive bowel sounds. No guarding, no rebound. No masses appreciated. EXTREMITIES: Normal range of motion, no pitting or edema. No clubbing or cyanosis. NEUROLOGICAL: Cranial nerves II through XII grossly intact. Normal speech, normal gait. PSYCH: Normal mood, normal affect. SKIN: Warm, Dry, normal turgor, no rashes or lesions noted. Limitations: no limitations External exam: Present: normal external exam Speculum exam: Present: vaginal bleeding Expanded Female exam: Present: tissue present in vagina External exam: Present: bleeding Speculum exam: Present: cervical OS open, vaginal bleeding Course Vital Signs 02/02/19 17:59 Temperature 97.8 F Pulse Rate 95 Respiratory 18 Rate Blood Pressure 114/79 O2 Sat by Pulse 98 Oximetry Medical Decision Making - Medical Decision Making Patient is a 23-year-old female presenting with vaginal bleeding and cramping that started this morning. Patient was seen in the ER for same complaint yesterday. Patient had full workup including blood work, ultrasound, UA, and Rhogam injection. Ultrasound revealed the possibility of demise, could not demonstrate a cardiac activity. Lab work was also reviewed from yesterday's visit. Speculum exam revealed vaginal bleeding as well as possible tissue in the vaginal vault. Tissue was sent to lab for testing. Cervical os was open. Discussed with patient this is most likely a miscarriage. Patient will follow-up with Dr. Cartagena on Tuesday. Return parameters were discussed with the patient and she verbalized understanding. Patient is stable for discharge at this time. Case discussed with Dr. Richardson. Disposition Clinical Impression: Threatened , Vaginal bleeding Disposition: HOME SELF-CARE Condition: Stable Instructions (If sedation given, give patient instructions): Threatened Miscarriage (ED) Additional Instructions: Please return to the Emergency Department if symptoms worsen or any other concerns. Follow-up with Dr. Cartagena on Tuesday morning. Is patient prescribed a controlled substance at d/c from ED?: No Referrals: Telma Moon MD [Primary Care Provider] - 1-2 days Luna Cartagena DO [Doctor of Osteopathic Medicine] - 1-2 days
[2019-02-02 21:05] VITALS: BP 116/71; PULSE 79; TEMP 97.6
== END 2019-02-02 21:05 | disposition home or self-care (01) ==
LOC: EC 17:38
DX: O20.0 Threatened abortion (principal); Z3A.01 Less than 8 weeks gestation of pregnancy
CPT/HCPCS: 99283

== ENCOUNTER → 2019-04-02 | Outpatient (CLI) | payer BC ==
--- NOTE | 2019-04-02 14:13 | MR ---
EXAMINATION TYPE: MR brain wo/w con DATE OF EXAM: 04/02/2019 COMPARISON: NONE HISTORY: 23-year-old o'clock female disorder of binocular vision, headaches. TECHNIQUE: Multiplanar, multisequence images of the brain and brainstem were acquired before and aft er administration of 9 mL IV Gadavist. Diffusion weighted imaging is performed. FINDINGS: No evidence for acute infarction, hemorrhage, mass, mass effect, midline shift, herniation, effacemen t of basal cisterns, or extra-axial fluid collection. The ventricles and sulci are age-appropriate. Major intracranial flow voids are intact. T2/FLAIR weighted sequences show a solitary, nonspecific 4 mm bright focus in the periventricular reg ion adjacent to the frontal horn of the left lateral ventricle. Midline structures demonstrate normal morphology. The craniocervical junction is normal. Post contrast images demonstrate no evidence of pathologic enhancement. Dural venous sinuses are pat ent. Moderate to severe mucosal thickening right maxillary sinus and mild to moderate throughout the ethmo id air cells and left maxillary sinus. Prominent lymph nodes in the bilateral parapharyngeal spaces as well as within the visualized upper n ji. Allowing for some image distortion, globes appear intact. IMPRESSION: 1. No acute intracranial abnormality seen. 2. Solitary 4 mm bright signal focus within the periventricular region adjacent to the left frontal h orn. This is a nonspecific finding. If concern for early demyelinating disease, follow-up can be per formed. 3. Moderate chronic paranasal sinus disease.
== END | disposition home or self-care (01) ==
LOC: RADMRIMAIN 10:55
PROVIDERS: ATTEND Family Medicine
DX: H53.30 Unspecified disorder of binocular vision (principal)
CPT/HCPCS: 70553; A9585

== ENCOUNTER 2019-10-19 09:47 | Outpatient (CLI) | payer BC ==
[2019-10-19 11:32] LABS: Appearance,Urine Cloudy (Clear); Bacteria,Urine Occasional /hpf; Bilirubin,Urine Negative (Negative); Blood,Urine Negative (Negative); Budding Yeast,Urine Rare /hpf; Calcium Oxalate Crystals,Urine Moderate /hpf; Color,Urine Yellow; Glucose,Urine (UA) Negative (Negative); Ketones,Urine Negative (Negative); Leukocyte Esterase,Urine Large (Negative); Mucus,Urine Occasional /hpf; Nitrite,Urine Negative (Negative); Protein,Urine Trace (Negative); RBC,Urine 11 /hpf (0-5); Specific Gravity,Urine 1.024 (1.001-1.035); Squamous Epithelial Cell,Urine 14 /hpf (0-4); WBC,Urine 15 /hpf (0-5)
[2019-10-19] MEDS ORDERED: LACTATED RINGERS 1,000 ML IV ONE (12:45)
[2019-10-19 12:49] VITALS: BP 119/66; RESP 16; TEMP 98.3
[2019-10-19 12:53] VITALS: PULSE 87
--- NOTE | 2019-11-07 08:01 | P.MSEPDOC ---
Presenting Problems - Arrival Data Date of Arrival on Unit: 10/19/19 Time of Arrival on Unit: 09:47 Mode of Transport: Ambulatory - Complaint OB-Reason for Admission/Chief Complaint: Pain Medical History - Information : 2 Para: 0 Term: 0 : 0 Abortions: Spontaneous or Elective: 1 Number of Living Children: 0 - Gestational Age Gestational Age by YESI (wks/days): 29 Weeks and 2 Days Review of Systems - Review of Systems Constitutional: No problems Breast: No problems ENT: No problems Cardiovascular: No problems Respiratory: No problems Gastrointestinal: No problems Genitourinary: No problems Musculoskeletal: No problems Neurological: No problems Skin: No problems Vital Signs - Temperature Temperature: 98.3 F Temperature Source: Oral - Pulse Right Brachial Pulse Rate: 87 Pulse Assessment Method: Pulse Oximetry - Respirations Respiratory Rate: 16 Oxygen Delivery Method: Room Air - Blood Pressure Right Arm Blood Pressure: 119/66 Blood Pressure Mean: 83 Blood Pressure Source: Automatic Cuff Medical Screen Scoring (Pre) - Cervical Exam Dilation: Exam Deferred Effacement: Exam Deferred Membranes: Intact - Uterine Contractions Frequency: N/A Duration: N/A Intensity: N/A - Maternal Vital Signs Maternal Temperature: N/A Maternal Blood Pressure: N/A Signs of Preeclampsia: N/A Maternal Respirations: N/A - Maternal Trauma Maternal Trauma: N/A - Assessment - Baby A Baseline FHR: 145 Heart Rate - NICHD Category: Category I (Normal) = 0 NST: Reactive Position: N/A Station: N/A - Total Score - Baby A Total Score - Baby A: 0 - Total Score - Baby B Total Score - Baby B: 0 - Total Score - Baby C Total Score - Baby C: 0 - Level of Risk - Baby A Level of Risk - Baby A: Low (0-5) - Level of Risk - Baby B Level of Risk - Baby B: Low (0-5) - Level of Risk - Baby C Level of Risk - Baby C: Low (0-5) Physician Notification (Pre) - Physician Notified Physician Notified Date: 10/19/19 Physician Notified Time: 10:41 New Order Received: Yes - Notification Comment Comment: send UA start IV Medical Screen Scoring (Post) - Cervical Exam Dilation: Exam Deferred Effacement: Exam Deferred Membranes: Intact - Uterine Contractions Frequency: N/A Duration: N/A Intensity: N/A - Maternal Vital Signs Maternal Temperature: N/A Maternal Blood Pressure: N/A Maternal Respirations: N/A - Pain Assessment Pain Location and Character: Abdomen Pain Scale Used: Numeric (1 - 10) Pain Intensity: 3 Pain Management Goal: 2 Pain Description: *Acute Pain Radiation Location: na Pain Frequency: Intermittent Pain Duration: 14 Pain Duration Units: Days Pain Behavior: Vocalization Pain Aggravating Factors: Activity Non-Pharmacological Interventions: Position/Reposition, Relaxation Technique - Maternal Trauma Maternal Trauma: N/A - Assessment - Baby A Heart Rate: 135 Heart Rate - NICHD Category: Category I (Normal) = 0 NST: Reactive Position: N/A - Total Score Total Score - Baby A: 0 Total Score - Baby B: 0 Total Score - Baby C: 0 - Post Treatment Level of Risk Post Treatment Level of Risk - Baby A: Low (0-5) Physician Notification (Post) - Physician Notified Physician Notified Date: 10/19/19 Physician Notified Time: 11:50 Physician/Practitioner Notified:: New Order Received: Yes - Notification Comment Comment: d/c home Disposition - Disposition OB Disposition: Physician follow up in office, Discharge to home Discharge Date: 10/19/19 Discharge Time: 12:00 I agree with the RN Medical Screening Exam: Yes Risk & Benefit of care provided described in d/c instruction: Yes Diagnosis: FALSE LABOR BEFORE 37 COMPLETED WEEKS OF GEST, THIRD TRI
== END 2019-10-19 12:00 | disposition home or self-care (01) ==
LOC: FBPOP 09:47
PROVIDERS: ATTEND Obstetrics & Gynecology
DX: O47.03 False labor before 37 completed weeks of gestation, third trimester (principal); Z3A.29 29 weeks gestation of pregnancy
CPT/HCPCS: 59025; 81001; 84112; 87086; 96360; 99214

== ENCOUNTER 2019-12-15 09:10 | Outpatient (CLI) | payer BC ==
[2019-12-15 09:44] LABS: Appearance,Urine Cloudy (Clear); Bacteria,Urine Rare /hpf; Bilirubin,Urine Negative (Negative); Blood,Urine Negative (Negative); Color,Urine Yellow; Glucose,Urine (UA) Negative (Negative); Ketones,Urine Negative (Negative); Leukocyte Esterase,Urine Large (Negative); Mucus,Urine Rare /hpf; Nitrite,Urine Negative (Negative); PH, Urine 6.5 (5.0-8.0); Protein,Urine Trace (Negative); RBC,Urine 4 /hpf (0-5); Specific Gravity,Urine 1.014 (1.001-1.035); Squamous Epithelial Cell,Urine 11 /hpf (0-4); Urobilinogen,Urine <2.0 mg/dL (<2.0); WBC,Urine 23 /hpf (0-5)
[2019-12-15 10:56] VITALS: BP 125/61; PULSE 78; RESP 17; TEMP 98.2
--- NOTE | 2019-12-16 12:40 | P.MSEPDOC ---
Presenting Problems - Arrival Data Date of Arrival on Unit: 12/15/19 Time of Arrival on Unit: 09:10 Mode of Transport: Ambulatory - Complaint OB-Reason for Admission/Chief Complaint: Other Comment: pt admit with c/o abdominal cramping and pain under her left breast. pt states. she has had swelling and protein in her urine and was told to come in per dr sotelo if. any LUQ pain, pt denies increased bps with , pt reports protein in her urine at the office and has collected 2 24 hour urine samples due to this finding, pt denies fiore/blurred vision/ruq pain Medical History - Information : 2 Para: 0 Term: 0 : 0 Abortions: Spontaneous or Elective: 1 Number of Living Children: 0 - Gestational Age Gestational Age by YESI (wks/days): 37 Weeks and 3 Days Review of Systems - Review of Systems Constitutional: No problems Breast: No problems ENT: No problems Cardiovascular: No problems Respiratory: No problems Gastrointestinal: No problems Genitourinary: No problems Musculoskeletal: No problems Neurological: No problems Skin: No problems Vital Signs - Temperature Temperature: 98.2 F Temperature Source: Oral - Pulse Right Brachial Pulse Rate: 78 Pulse Assessment Method: Automatic Cuff - Respirations Respiratory Rate: 17 Oxygen Delivery Method: Room Air - Blood Pressure Right Arm Blood Pressure: 125/61 Blood Pressure Mean: 82 Blood Pressure Source: Automatic Cuff Medical Screen Scoring (Pre) - Cervical Exam Dilation: 1-3 cm = 1 Membranes: Intact - Uterine Contractions Frequency: > 5 minutes apart = 1 Duration: > 40 seconds = 2 Intensity: N/A - Maternal Vital Signs Maternal Temperature: N/A Maternal Blood Pressure: N/A Signs of Preeclampsia: N/A Maternal Respirations: N/A - Maternal Trauma Maternal Trauma: N/A - Assessment - Baby A Baseline FHR: 135 Heart Rate - NICHD Category: Category I (Normal) = 0 NST: Reactive Position: N/A Station: N/A - Total Score - Baby A Total Score - Baby A: 4 - Total Score - Baby B Total Score - Baby B: 4 - Total Score - Baby C Total Score - Baby C: 4 - Level of Risk - Baby A Level of Risk - Baby A: Low (0-5) - Level of Risk - Baby B Level of Risk - Baby B: Low (0-5) - Level of Risk - Baby C Level of Risk - Baby C: Low (0-5) - Pain Assessment Pain Location and Character: Left, Upper, Abdomen Pain Scale Used: Numeric (1 - 10) Pain Intensity: 4 Pain Management Goal: 3 Pain Description: *Acute, Aching Pain Radiation Location: none Pain Frequency: Frequent Pain Duration: 2 Pain Duration Units: Hours Pain Behavior: None Exhibited Pain Aggravating Factors: None Physician Notification (Pre) - Physician Notified Physician Notified Date: 12/15/19 Physician Notified Time: 10:25 New Order Received: Yes (culture urine, dc home) Disposition - Disposition OB Disposition: Discharge to home, Written follow up instructions reviewed Discharge Date: 12/15/19 Discharge Time: 10:30 I agree with the RN Medical Screening Exam: Yes Risk & Benefit of care provided described in d/c instruction: Yes Diagnosis: RELATED CONDITIONS, UNSPECIFIED, THIRD TRIMESTER
== END 2019-12-15 10:30 | disposition home or self-care (01) ==
LOC: FBPOP 09:10
PROVIDERS: ATTEND Obstetrics & Gynecology
DX: O26.93 Pregnancy related conditions, unspecified, third trimester (principal); Z3A.37 37 weeks gestation of pregnancy
CPT/HCPCS: 59025; 81001; 87086; 99213

== ENCOUNTER 2019-12-26 06:07 | Inpatient (IN) | payer BC, OTHER ==
[2019-12-26] MEDS ORDERED: TERBUTALINE 1 MG/ML VIAL SQ PRN (06:20)
[2019-12-26] MEDS ORDERED: OXYTOCIN 10 UNIT/ML 1 ML VIAL IM PRN (06:20)
[2019-12-26] MEDS ORDERED: LIDOCAINE 0.5% (PF) 5 MG/ML (50 ML SDV) SQ PRN (06:20)
[2019-12-26] MEDS ORDERED: METHYLERGONOVINE 0.2 MG/ML 1 ML AMP IM PRN (06:20)
[2019-12-26] MEDS ORDERED: CARBOPROST TROMETHAMINE 250 MCG/ML 1 ML AMP IM PRN (06:20)
[2019-12-26] MEDS ORDERED: PENICILLIN G POTASSIUM 5,000,000 UNIT in DEXTROSE 5% IN WATER 100 ML IVPB STA ×2 (06:20)
[2019-12-26] MEDS ORDERED: OXYTOCIN 30 UNITS/500 ML NS 30 UNIT in SALINE 1 500ML.BAG IV SCH (06:30)
[2019-12-26] MEDS: LACTATED RINGERS 1,000 ML IV SCH ×3 (06:44→23:43)
[2019-12-26 06:47] LABS: Basophils # (A) 0.1 k/uL (0-0.2); Basophils % (A) 0 %; Eosinophils # (A) 0.3 k/uL (0-0.7); Eosinophils % (A) 2 %; HCT 39.3 % (34.0-46.0); HGB 12.9 gm/dL (11.4-16.0); Lymphocytes # (A) 3.2 k/uL (1.0-4.8); Lymphocytes % (A) 20 %; MCH 30.7 pg (25.0-35.0); MCHC 32.9 g/dL (31.0-37.0); MCV 93.1 fL (80.0-100.0); Mean Platelet Volume 7.5; Monocytes # (A) 1.1 k/uL (0-1.0); Monocytes % (A) 7 %; Neutrophils # (A) 11.7 k/uL (1.3-7.7); Neutrophils % (A) 70 %; Platelet Count 264 k/uL (150-450); RBC 4.22 m/uL (3.80-5.40); RDW 13.7 % (11.5-15.5); WBC 16.6 k/uL (3.8-10.6)
--- NOTE | 2019-12-26 07:29 | P.HPOB ---
History of Present Illness H&P Date: 12/26/19 Chief Complaint: Here for induction of labor, chronic proteinuria and mild h ypertension This is a 24-year-old white female 2 para 0010 EDC 01/02/2020 at 39 weeks gestation. Patient was noted to be mildly hypertensive in the office yesterday she has a history of chronic proteinuria, has been off work since 33 weeks gestation. She denies headache, visual changes or right upper quadrant pain. Fetus is been active throughout the . history significant for blood type A-, rubella status immune. Group B strep cultures positive. Hepatitis B surface antigen, HIV testing, urine culture, gonorrhea and chlamydia cultures all negative. One-hour Glucola 114. Hemoglobin A1c 4.6. Social history patient is single, father of the baby is involved. She works for [employer]. She denies tobacco alcohol or drug use. Family history is significant for hypertension. ALLERGIES none known. Current medications vitamins daily. Past ocular history significant for polycystic ovarian syndrome. Past surgical history appendectomy in 2016. On exam patient is 5 foot 3 inches, 260 pounds, blood pressure 127/84 and admission, pulse 100. The general physical exam reveals 1+ lower extremity edema, no clonus. Normal reflexes. Chest is clear in all carvajal. Cervix is 2 cm dilated, soft, -3, vertex, 50% effaced. Artificial amniorrhexis reveals clear fluid. Internal scalp lead is applied. heart rate is consistent with reactive NST. Impression: 39 week intrauterine , chronic hypertension with now mild hypertension. Here for induction of labor, all signs reassuring. Plan: Penicillin G per hospital protocol for positive group B strep cultures, first dose infusing. Oxytocin per hospital protocol. Close maternal and surveillance. Anticipate normal spontaneous vaginal delivery. Review of Systems Constitutional: Reports as per HPI Past Medical History Past Medical History: No Reported History History of Any Multi-Drug Resistant Organisms: None Reported Past Surgical History: Appendectomy Smoking Status: Never smoker - Past Family History Mother Family Medical History: Hypertension Additional Family Medical History / Comment(s): osteoporosis Father History Unknown: Yes Family Medical History: Hypertension Medications and Allergies Home Medications Medication Instructions Recorded Confirmed Type Aspirin 81 mg PO DAILY 12/15/19 12/26/19 History Pnv No.95/Ferrous Fum/Folic AC 1 each PO DAILY 12/15/19 12/26/19 History [ Multivitamin Tablet] Allergies Allergy/AdvReac Type Severity Reaction Status Date / Time No Known Allergies Allergy Verified 02/02/19 18:01 Exam Intake and Output 12/25/19 12/26/19 12/26/19 22:59 06:59 14:59 Other: Weight 117.934 kg See dictation under HPI please Results Result Diagrams: 12/26/19 06:28 Abnormal Lab Results - Last 24 Hours (Table) 12/26/19 Range/Units 06:28 WBC 16.6 H (3.8-10.6) k/uL Neutrophils # 11.7 H (1.3-7.7) k/uL Monocytes # 1.1 H (0-1.0) k/uL Assessment and Plan Assessment: 39 week intrauterine , chronic proteinuria now with mild hypertension. Positive group B strep cultures. Obesity. Plan: Oxytocin per hospital protocol. Check liver enzymes. Penicillin G per hospital protocol for positive group B strep. Close maternal and surveillance. Anticipate normal spontaneous vaginal delivery. Time with Patient: Less than 30
[2019-12-26] MEDS: PENICILLIN G POTASSIUM 2,500,000 UNIT in DEXTROSE 5% IN WATER 100 ML IVPB SCH ×4 (11:43→18:16)
[2019-12-26] MEDS ORDERED: fentaNYL (PF) 50 MCG/ML 2 ML AMP ONE (13:03)
[2019-12-26] MEDS ORDERED: OXYTOCIN 10 UNIT/ML 1 ML VIAL ONE (13:03)
[2019-12-26] MEDS ORDERED: ONDANSETRON 4 MG/2 ML VIAL ONE (13:03)
[2019-12-26] MEDS ORDERED: METHYLERGONOVINE 0.2 MG/ML 1 ML AMP ONE (13:03)
[2019-12-26] MEDS ORDERED: SUCCINYLCHOLINE CHLORIDE 100 MG/5 ML SYR IV ONE (13:03)
[2019-12-26] MEDS ORDERED: PROPOFOL 10 MG/ML 20 ML VIAL IV ONE (13:03)
[2019-12-26] MEDS ORDERED: ACETAMINOPHEN TAB 325 MG TAB PO PRN (13:56)
[2019-12-26] MEDS ORDERED: diphenhydrAMINE 25 MG CAP PO PRN (13:56)
[2019-12-26] MEDS ORDERED: HYDROcodone/APAP 5-325MG 1 EACH TAB PO PRN (13:56)
[2019-12-26] MEDS ORDERED: HYDROmorphone PCA 10 MG/50 ML BAG IV PRN (13:56)
[2019-12-26] MEDS ORDERED: diphenhydrAMINE 50 MG CAP PO PRN (13:56)
[2019-12-26] MEDS ORDERED: ACETAMINOPHEN IV (For NPO) 1,000 MG in EMPTY BAG 1 BAG IVPB ONE (13:56)
[2019-12-26] MEDS ORDERED: NALOXONE 0.4 MG/ML 1 ML VIAL IV PRN (13:56)
[2019-12-26] MEDS ORDERED: METOCLOPRAMIDE 5 MG/ML 2 ML VIAL IVP PRN (13:56)
[2019-12-26] MEDS ORDERED: ZOLPIDEM 5 MG TAB PO PRN (13:56)
[2019-12-26] MEDS ORDERED: diphenhydrAMINE 50 MG/ML 1 ML VIAL IVP PRN ×2 (13:56)
[2019-12-26] MEDS ORDERED: ONDANSETRON 4 MG/2 ML VIAL IVP PRN (13:56)
[2019-12-26] MEDS ORDERED: SIMETHICONE 80 MG CHEWABLE PO PRN (13:56)
[2019-12-26] MEDS ORDERED: IBUPROFEN IV 800 MG in SODIUM CHLORIDE 0.9% 250 ML IV ONE (13:59)
[2019-12-26] MEDS ORDERED: OXYTOCIN 20 UNITS/1000 ML NS 1,000 ML IV SCH (14:00)
--- NOTE | 2019-12-26 14:04 | P.OP ---
Date of Procedure: 12/26/19 Preoperative Diagnosis: IUP at 39 and 0/sevenths weeks, hand presentation, nonreassuring heart tones Postoperative Diagnosis: Same Procedure(s) Performed: Primary low transverse section Anesthesia: GAL Surgeon: Laine June Cage Shift Manager #1: Freida Leon Estimated Blood Loss (ml): 800 IV fluids (ml): 1,300 Urine output (ml): 200 Pathology: other (Placenta) Condition: stable Disposition: observation Indications for Procedure: This 24-year-old 2 para 0010 presented to labor and delivery at 39-2/7 weeks for elective induction of labor. Patient was noted in labor to have a fiore nd presentation upon examination by the RN, patient was counseled on primary C- section secondary to malpresentation, in addition nonreassuring heart tones were noted at the time of diagnosis of hand presentation. Patient was counseled on primary and was taken back to the operating suite. Operative Findings: Arcuate uterus was noted, normal ovaries bilaterally. Some omental adhesions anteriorly. Viable female delivered at 1315, weight of expose 10.5 ounces with Apgars of 8 and 9 at one and 5 minutes respectively. Description of Procedure: Patient was taken back to the operating suite where general anesthesia was obtained without difficulty by the anesthesia department. She was then prepped and draped in the normal sterile fashion in the dorsal supine position. A Pfannenstiel skin incision was made with scalpel and carried through the underlying layer of fascia. The fascia was incised in the midline and extended laterally. The superior aspect of the fascial incision was grasped with [place] clamps, elevated and underlying rectus muscles dissected off sharply. Inferior aspect of the fascial incision was then grasped jessie clamps, elevated and underlying rectus muscles dissected off sharply. The rectus muscles were in the midline the peritoneum was identified and entered. Some omental adhesions were noted at this time. They were moved away from the operating field. The bladder blade was then inserted into the pelvis scalpel was then used to make a hysterotomy incision amniotomy was performed clear fluid was obtained. The was delivered in a vertex presentation without difficulty the umbilical cord was doubly clamped and cut and handed off to waiting RN. A spontaneous cry was noted at . The placenta was then delivered manually and the uterus was cleared of all clots and debris. The uterine incision was then closed with 0 Vicryl in a running locked fashion 2. Small amount of bleeding was noted in the right hand side of the uterine incision therefore 2 [id number] sutures were used to obtain hemostasis. On inspection the hysterotomy incision hemostasis was appreciated and the uterus was returned the abdomen. The gutters were cleared of all clots and debris. The uterus was noted to be firm. The hysterotomy incision was inspected and hemostasis was appreciated. The peritoneum was then loosely approximated. The fascia was then closed with 0 Vicryl in a running fashion from one lateral edge the midline and the other lateral edge the midline. Subcutaneous tissue was then irrigated hemostasis was appreciated. It was then closed with 3-0 Vicryl in a running fashion. The skin was then closed with 4-0 Vicryl in a subcuticular fashion. Steri-Strips and sterile dressings were applied. All counts were presumed to be case Patient tolerated procedure well and was taken back to her birthing suite for recovery.
--- NOTE | 2019-12-26 14:17 | XR ---
EXAMINATION TYPE: XR KUB portable DATE OF EXAM: 12/26/2019 COMPARISON: None INDICATION: Sponge count TECHNIQUE: Single view abdomen supine view FINDINGS: There is a normal bowel gas pattern. Psoas margins are faintly visualized. No organomegaly is present. No suspicious radiopaque foreign bodies identified. IMPRESSION: 1. Unremarkable Abdomen
[2019-12-26] MEDS ORDERED: ceFAZolin 3 GM in SODIUM CHLORIDE 0.9% 100 ML IVPB ONE (14:45)
[2019-12-26] MEDS: SENNOSIDES-DOCUSATE SODIUM 1 EACH TAB PO SCH (20:48)
[2019-12-27] MEDS ORDERED: Rhogam IMMUNE GLOBULIN 1,500 UNIT/1 ML IM ONE (00:24)
[2019-12-27] MEDS: LACTATED RINGERS 1,000 ML IV SCH (03:24)
--- NOTE | 2019-12-27 07:34 | P.PN ---
Subjective Progress Note Date: 12/27/19 Principal diagnosis: Postoperative day #1 Slept well. Minimal pain. Minimal lochia rubra. Positive flatus Objective - Vital Signs Vital signs: Vital Signs Temp 98.6 F 12/27/19 04:00 Pulse 95 12/27/19 04:00 Resp 18 12/27/19 04:00 BP 117/72 12/27/19 04:00 Pulse Ox 95 12/27/19 04:00 Intake & Output 12/26/19 12/27/19 12/27/19 18:59 06:59 18:59 Intake Total 1300 Output Total 1000 600 Balance 300 -600 Weight 117.934 kg Intake: IV 1300 Output: Urine 200 600 Uretheral (Oneal) 150 Estimated Blood Loss 800 Other: Voiding Method Toilet # Voids 0 - Constitutional General appearance: Present: morbidly obese - EENT Eyes: Present: PERRLA ENT: Present: hearing grossly normal - Respiratory Respiratory: bilateral: CTA - Cardiovascular Rhythm: regular - Gastrointestinal Gastrointestinal Comment(s): Incision clean and dry, intact, Steri-Strips applied. Fundus firm, midline, symmetric, 18 week size. General gastrointestinal: Present: normal bowel sounds - Integumentary Integumentary: Present: normal - Neurologic Neurologic: Present: CNII-XII intact - Musculoskeletal Musculoskeletal: Present: gait normal, strength equal bilaterally - Psychiatric Psychiatric: Present: A&O x's 3, appropriate affect, intact judgment & insight - Labs CBC & Chem 7: 12/26/19 06:28 Assessment and Plan Assessment: Doing well postoperative day #1 Plan: Advance diet and activity. Continue postoperative care. Likely discharge home tomorrow. Time with Patient: Less than 30
[2019-12-27] MEDS: IBUPROFEN 600 MG TAB PO PRN ×2 (07:44→16:07)
[2019-12-27] MEDS: SENNOSIDES-DOCUSATE SODIUM 1 EACH TAB PO SCH ×2 (07:44→20:10)
[2019-12-27 08:16] LABS: Basophils % (A) 0 %; Eosinophils # (A) 0.1 k/uL (0-0.7); Eosinophils % (A) 0 %; HCT 29.1 % (34.0-46.0); Lymphocytes # (A) 1.6 k/uL (1.0-4.8); Lymphocytes % (A) 9 %; MCH 30.4 pg (25.0-35.0); MCHC 32.2 g/dL (31.0-37.0); MCV 94.4 fL (80.0-100.0); Mean Platelet Volume 7.5; Monocytes % (A) 5 %; Neutrophils % (A) 84 %; Platelet Count 214 k/uL (150-450); RBC 3.08 m/uL (3.80-5.40); WBC 17.8 k/uL (3.8-10.6)
[2019-12-27 08:20] LABS: HGB 9.4 gm/dL (11.4-16.0)
[2019-12-27] MEDS: ACETAMINOPHEN TAB 325 MG TAB PO PRN ×2 (12:10→20:19)
[2019-12-28] MEDS: IBUPROFEN 600 MG TAB PO PRN (00:26)
--- NOTE | 2019-12-28 04:30 | P.DS ---
Providers Date of admission: 12/26/19 06:07 Expected date of discharge: 12/28/19 Attending physician: Anita Xiao Primary care physician: Stated None Hospital Course: This is a 24-year-old white female 1 para 0 EDC 01/02/2020 at 39 weeks gestation. Patient presented for induction for chronic proteinuria, and mild hypertension. was remarkable for blood type A-, rubella status immune. Group B strep cultures positive. Please see dictated history and physical for details. On admission artificial amniorrhexis revealed clear fluid. Penicillin was given, 2 doses received. Patient progressed through labor and became 6-7 cm dilated, at which time a hand was noted in the vagina. I attempted to reduce the hand by pinching the fingers, however the hand did not reduce and the infant further push the arm through the cervix into the vagina. The decision was made to proceed with stat section. A low transverse incision was made under general anesthetic and the patient delivered a liveborn female infant with scores of 8 and 9 at one and 5 minutes respectively weighed 3020 g or 6 pounds 10.5 ounces. She did well intraoperatively, there was a nuchal cord 1 noted. No hand or arm deficits were appreciated on the . Please see dictated delivery note for details. Patient did very well postoperatively. Antibiotics were continued for 24 hours due to this stat nature of the . Abdominal x-ray also revealed no issues. This morning the patient is doing well. She is voiding, ambulating, passing flatus without difficulty. Vital signs are stable and she is afebrile. Incision is clean and dry, intact, subcutaneous stitch well approximated and Steri-Strips. Extremities reveal +1 edema, breasts are not engorged. Fundus is firm and in the midline, symmetric and 18 week size. is doing well and is also judged to be in very good condition for discharge home. Patient is being discharged home today in very good condition and will follow-up with me in the office in 2 weeks. I have reminded her no intercourse, tampons or douching. She will use [id number] Advil or Aleve, or Motrin as needed for pain. I've asked her to call me with any fevers shakes or chills, foul smelling or copious lochia, with the passage of large blood clots, with any pain not alleviated by [id number]-crtrrpo products, or indeed with any concerns. Assessment: Doing well day #2 Patient Condition at Discharge: Good Plan - Discharge Summary Discharge Rx Participant: No New Discharge Prescriptions: No Action Pnv No.95/Ferrous Fum/Folic AC [ Multivitamin Tablet] 1 each PO DAILY Aspirin 81 mg PO DAILY Discharge Medication List Aspirin 81 mg PO DAILY 12/15/19 [History] Pnv No.95/Ferrous Fum/Folic AC [ Multivitamin Tablet] 1 each PO DAILY 12/15/19 [History] Follow up Appointment(s)/Referral(s): Anita Xiao MD [STAFF PHYSICIAN] - 2 Weeks Discharge Disposition: HOME SELF-CARE
[2019-12-28] MEDS: SENNOSIDES-DOCUSATE SODIUM 1 EACH TAB PO SCH (08:38)
[2019-12-28 08:50] VITALS: BP 125/81; PULSE 96; RESP 17; TEMP 98.4
== END 2019-12-28 11:15 | disposition home or self-care (01) | DRG 788 ==
LOC: 4FBP 06:07
PROVIDERS: ADMIT Obstetrics & Gynecology; ATTEND Obstetrics & Gynecology
PROC: 10D00Z1 Extraction of Products of Conception, Low, Open Approach (ICD-10-PCS; principal; 2019-12-26 06:45)
PROC: 3E033VJ Introduction of Other Hormone into Peripheral Vein, Percutaneous Approach (ICD-10-PCS; principal; 2019-12-26 06:45)
PROC: 10907ZC Drainage of Amniotic Fluid, Therapeutic from Products of Conception, Via Natural or Artificial Opening (ICD-10-PCS; principal; 2019-12-26 06:45)
PROC: 3E0234Z Introduction of Serum, Toxoid and Vaccine into Muscle, Percutaneous Approach (ICD-10-PCS; 2019-12-27)
DX: O10.92 Unspecified pre-existing hypertension complicating childbirth (principal); E66.01 Morbid (severe) obesity due to excess calories; O99.214 Obesity complicating childbirth; O64.4XX0 Obstructed labor due to shoulder presentation, not applicable or unspecified; O26.893 Other specified pregnancy related conditions, third trimester; O76 Abnormality in fetal heart rate and rhythm complicating labor and delivery; O99.824 Streptococcus B carrier state complicating childbirth; Z67.11 Type A blood, Rh negative; O69.81X0 Labor and delivery complicated by cord around neck, without compression, not applicable or unspecified; Q51.810 Arcuate uterus; Z37.0 Single live birth; K66.0 Peritoneal adhesions (postprocedural) (postinfection); Z3A.39 39 weeks gestation of pregnancy; Z79.82 Long term (current) use of aspirin; Z79.899 Other long term (current) drug therapy; Z87.42 Personal history of other diseases of the female genital tract; Z90.49 Acquired absence of other specified parts of digestive tract; Z87.19 Personal history of other diseases of the digestive system; Z98.890 Other specified postprocedural states; Z82.49 Family history of ischemic heart disease and other diseases of the circulatory system; Z82.62 Family history of osteoporosis
CPT/HCPCS: 74018; 84450; 84460; 84550; 85025; 85461; 86850; 86900; 86901

== ENCOUNTER 2020-12-23 09:52 | Inpatient (IN) | payer OTHER ==
[2020-12-23] MEDS ORDERED: CITRIC ACID-SODIUM CITRATE 15 ML CUP PO ONE (11:48)
--- NOTE | 2020-12-23 12:07 | P.HPOB ---
History of Present Illness H&P Date: 12/23/20 Chief Complaint: I think my water broke this morning. This is a 25-year-old white female gr This is a 25-year-old female 2 para 1001 EDC 12/30/2020 at 38 weeks gestation. Patient presented this morning with a complaint of continued fluid leakage. Amnio sure was negative, however she continues to have clear fluid noted on the perineal body. She is prakash every 5 minutes apart, they have increased in intensity since her admission. Patient is judged to be in early labor, 1 cm on initial evaluation, 2-3 cm at this time. There is a nonreactive NST. She is a previous history of , after consultation this morning is electing to proceed with repeat . Declining tubal ligation. history is significant for positive group B strep cultures, blood type A-, gonorrhea and chlamydia cultures negative, HIV testing, hepatitis B surface antigen, urine culture all negative. Rubella status immune. One-hour Glucola 1:15. Family history significant for hypertension. Past medical history is essentially negative. Past surgical history appendectomy, section 2019. Current medications vitamins daily, baby aspirin daily. ALLERGIES none known. Social history patient has never been a smoker, father of the baby is involved. She denies alcohol or drug use. On exam patient is 5 foot 2-1/2 inches, 255 pounds, vital signs are stable and she is afebrile. General physical exam is within normal limits. Chest is clear in all carvajal. Extremities reveal trace edema. heart rate is in the 150s, no decelerations but no accelerations consistent with reactive NST, therefore nonreactive NST. Cervix is 2-3 cm dilated, 70% effaced, -2 station, vertex. There is amniotic fluid noted on the perineal body. Impression: 38 week intrauterine , early labor, suspect ruptured membranes. Nonreassuring heart tones. Previous section, patient electing repeat at this time. Plan: We will proceed with antibiotics, repeat low transverse section, declining . Risks benefits and alternatives of all been discussed. All questions answered. Review of Systems Constitutional: Reports as per HPI Past Medical History Past Medical History: No Reported History Additional Past Medical History / Comment(s): PCOS History of Any Multi-Drug Resistant Organisms: None Reported Past Surgical History: Appendectomy Past Anesthesia/Blood Transfusion Reactions: No Reported Reaction Smoking Status: Never smoker - Past Family History Mother Family Medical History: Hypertension Additional Family Medical History / Comment(s): osteoporosis Father History Unknown: Yes Family Medical History: Hypertension Medications and Allergies Home Medications Medication Instructions Recorded Confirmed Type Aspirin 81 mg PO DAILY 12/15/19 12/23/20 History Pnv No.95/Ferrous Fum/Folic AC 1 each PO DAILY 12/15/19 12/23/20 History [ Multivitamin Tablet] Allergies Allergy/AdvReac Type Severity Reaction Status Date / Time No Known Allergies Allergy Verified 12/23/20 10:03 Exam Intake and Output 12/22/20 12/23/20 12/23/20 22:59 06:59 14:59 Other: Weight 108.862 kg See dictation under HPI please Assessment and Plan Assessment: 38 week intrauterine , previous section, early labor, nonreactive NST. After consultation, patient requesting repeat . Declining . Plan: Antibiotics now. Repeat low transverse section. All risks benefits and alternatives discussed. Patient and her significant other both in full understanding. Time with Patient: Less than 30
[2020-12-23] MEDS ORDERED: OXYTOCIN 30 UNITS/500 ML NS BAG IV ONE (12:20)
[2020-12-23] MEDS ORDERED: MORPHINE SULFATE (PF) 0.3 MG/0.3 ML SYR ONE (12:20)
[2020-12-23] MEDS ORDERED: NALBUPHINE 10 MG/ML (1 ML AMP) ONE (12:20)
[2020-12-23] MEDS ORDERED: KETOROLAC 15 MG/ML 1 ML VIAL ONE (12:20)
[2020-12-23] MEDS ORDERED: ONDANSETRON 4 MG/2 ML VIAL ONE (12:20)
[2020-12-23 12:30] LABS: Basophils # (A) 0.1 k/uL (0-0.2); Basophils % (A) 1 %; Eosinophils # (A) 0.3 k/uL (0-0.7); Eosinophils % (A) 2 %; HCT 36.4 % (34.0-46.0); HGB 12.7 gm/dL (11.4-16.0); Lymphocytes # (A) 1.9 k/uL (1.0-4.8); Lymphocytes % (A) 14 %; MCH 31.7 pg (25.0-35.0); MCHC 34.9 g/dL (31.0-37.0); MCV 90.6 fL (80.0-100.0); Mean Platelet Volume 7.2; Monocytes # (A) 0.9 k/uL (0-1.0); Monocytes % (A) 7 %; Neutrophils # (A) 9.8 k/uL (1.3-7.7); Neutrophils % (A) 75 %; Platelet Count 266 k/uL (150-450); RBC 4.02 m/uL (3.80-5.40); RDW 13.7 % (11.5-15.5); WBC 13.1 k/uL (3.8-10.6)
[2020-12-23] MEDS ORDERED: NALOXONE 0.4 MG/ML 1 ML VIAL IV PRN ×2 (12:51→13:19)
[2020-12-23] MEDS ORDERED: HYDROmorphone 0.5 MG/0.5 ML SYRINGE IVP PRN (12:51)
[2020-12-23] MEDS ORDERED: ONDANSETRON 4 MG/2 ML VIAL IVP PRN ×2 (12:51→13:19)
[2020-12-23] MEDS ORDERED: diphenhydrAMINE 50 MG/ML 1 ML VIAL IVP PRN ×3 (12:51→13:19)
[2020-12-23] MEDS ORDERED: diphenhydrAMINE 25 MG CAP PO PRN (13:19)
[2020-12-23] MEDS ORDERED: ZOLPIDEM 5 MG TAB PO PRN (13:19)
[2020-12-23] MEDS ORDERED: METOCLOPRAMIDE 5 MG/ML 2 ML VIAL IVP PRN (13:19)
[2020-12-23] MEDS ORDERED: diphenhydrAMINE 50 MG CAP PO PRN (13:19)
[2020-12-23] MEDS ORDERED: SIMETHICONE 80 MG CHEWABLE PO PRN (13:19)
--- NOTE | 2020-12-23 13:19 | P.OP ---
Date of Procedure: 12/23/20 Preoperative Diagnosis: 39 week intrauterine , positive group B strep cultures, previous section, early labor, nonreassuring heart tones. Postoperative Diagnosis: Liveborn male infant, left occiput transverse, nuchal cord 1. Procedure(s) Performed: Repeat low transverse section Anesthesia: spinal Surgeon: Anita Xiao Board Certified Music Therapist #1: Vito Celaya Estimated Blood Loss (ml): 400 IV fluids (ml): 1,200 Urine output (ml): 400 Pathology: none sent Condition: stable Disposition: observation Indications for Procedure: Nonreactive NST, previous , early labor Operative Findings: Liveborn male infant, left occiput transverse, nuchal cord 1. Description of Procedure: Patient is brought to the operating suite where a spinal with Duramorph is administered. She's placed in the dorsal supine position with left lateral uterine displacement. Oneal catheter placed. 2 g Ancef given. The appropriate timeout is performed to assure proper patient procedure identification. The abdomen is prepped and draped in the usual sterile fashion. The analgesia is checked and noted to be adequate. A repeat low transverse skin incision is made, this is carried down through the subcutaneous tissue to the fascia. Subcutaneous tissue is approximate 6-8 cm deep. Fascia is isolated, scored, extended bilaterally with curved Bach scissors. Peritoneum is next identified and incised, there is no bowel or bladder involvement. Bladder is taken down with Metzenbaum scissors and at all times the bladder is Well from the operative field to avoid bladder and/or ureteral injury. The ring retractor is used for excellent exposure. A repeat low transverse incision is made through the uterus. Clear fluid is encountered. The incision is extended with blunt dissection. 's head is delivered in the left occiput transverse position. There is a nuchal cord 1 that is reduced. The patient is officially delivered of a liveborn male at 1241 hours. Umbilical cord is doubly clamped and ligated, he is handed to waiting nurses for evaluation where scores of 8 and 9 at one and 5 minutes respectively are given. Placentas delivered manually, it is inspected and noted to be intact with trivascular cord at 1242 hours. The uterus is then externalized and wiped clean with a sterile sponge to avoid any retained products of conception. Uterus is closed in a two-step fashion, first layer running locking, second layer imbricated, both with 0 Vicryl suture. The lower uterine segment is quite vascular. The powder anticoagulant is placed on the suture line, excellent hemostasis is noted. Bilateral tubes and ovaries are normal to inspection. Bilateral gutters are inspected and cleaned. Peritoneum was allowed to close by secondary intention. Fascia is closed in a running stitch of 0 Vicryl with over ligation in the midline. Subcutaneous tissue is irrigated, clean and dry. It is reapproximated with 3-0 Vicryl in a running stitch. 4-0 undyed Monocryl is used for final skin closure. Steri-Strips and Mastisol are applied to the wound. Paper tape is used. weighed 7 pounds 5.5 ounces or 3330 g. Total estimated blood loss 400 mL's. Oneal catheter is noted to be draining clear urine. Patient is requesting circumcision for her infant son.
[2020-12-23] MEDS: LACTATED RINGERS 1,000 ML IV SCH ×2 (13:32→21:27)
[2020-12-23] MEDS ORDERED: OXYTOCIN 30 UNITS/500 ML NS 30 UNIT in SALINE 1 500ML.BAG IV SCH (13:45)
[2020-12-23] MEDS: ACETAMINOPHEN TAB 500 MG TAB PO SCH ×2 (15:27→22:45)
[2020-12-23] MEDS ORDERED: Rhogam IMMUNE GLOBULIN 1,500 UNIT/1 ML IM ONE (17:43)
[2020-12-23] MEDS: KETOROLAC 15 MG/ML 1 ML VIAL IVP PRN (21:27)
[2020-12-23] MEDS: IBUPROFEN 600 MG TAB PO SCH (22:45)
[2020-12-23] MEDS: SENNOSIDES-DOCUSATE SODIUM 1 EACH TAB PO SCH (22:45)
[2020-12-24] MEDS ORDERED: ACETAMINOPHEN TAB 500 MG TAB ONE (02:00)
[2020-12-24] MEDS: IBUPROFEN 600 MG TAB PO SCH ×4 (02:54→20:49)
[2020-12-24] MEDS: ACETAMINOPHEN TAB 500 MG TAB PO SCH ×3 (04:32→22:39)
[2020-12-24] MEDS: SENNOSIDES-DOCUSATE SODIUM 1 EACH TAB PO SCH ×2 (06:00→22:39)
--- NOTE | 2020-12-24 07:12 | P.PN ---
Progress Note - Text Progress Note Date: 12/24/20 Postoperative day 1 status post section under spinal anesthesia, and i ntrathecal morphine given for postoperative analgesia, patient doing well, there is no anesthesia related complications, Patient had no headache, vital signs stable , Assessment and plan= postop day 1 status post , doing well there is no anesthesia related complication.
[2020-12-24 07:16] LABS: Basophils # (A) 0.1 k/uL (0-0.2); Basophils % (A) 0 %; Eosinophils # (A) 0.2 k/uL (0-0.7); Eosinophils % (A) 1 %; HCT 34.7 % (34.0-46.0); HGB 11.6 gm/dL (11.4-16.0); Lymphocytes # (A) 2.3 k/uL (1.0-4.8); Lymphocytes % (A) 14 %; MCH 31.1 pg (25.0-35.0); MCHC 33.4 g/dL (31.0-37.0); MCV 93.2 fL (80.0-100.0); Mean Platelet Volume 7.3; Monocytes % (A) 6 %; Neutrophils # (A) 12.4 k/uL (1.3-7.7); Neutrophils % (A) 77 %; Platelet Count 240 k/uL (150-450); RBC 3.72 m/uL (3.80-5.40); RDW 13.7 % (11.5-15.5)
--- NOTE | 2020-12-24 07:49 | P.PN ---
Subjective Progress Note Date: 12/24/20 Principal diagnosis: Doing well postoperative day #1 Positive flatus. Pain well managed. No complaints. Objective - Vital Signs Vital signs: Vital Signs Temp 97.7 F 12/24/20 04:00 Pulse 106 H 12/24/20 04:00 Resp 16 12/24/20 06:00 BP 105/65 12/24/20 04:00 Pulse Ox 98 12/24/20 04:00 Intake & Output 12/23/20 12/24/20 12/24/20 18:59 06:59 18:59 Output Total 200 250 Balance -200 -250 Weight 108.862 kg Output: Urine 200 250 Uretheral (Oneal) 250 Other: Voiding Method Indwelling Catheter - Constitutional General appearance: Present: average body habitus, cooperative - EENT Eyes: Present: PERRLA ENT: Present: hearing grossly normal - Neck Neck: Present: normal ROM Thyroid: bilateral: normal size - Respiratory Respiratory: bilateral: CTA - Cardiovascular Rhythm: regular - Gastrointestinal Gastrointestinal Comment(s): Incision clean and dry, intact, Steri-Strips applied. Fundus firm, midline, symmetric, 18 week size, nontender. General gastrointestinal: Present: normal bowel sounds - Integumentary Integumentary: Present: normal - Neurologic Neurologic: Present: CNII-XII intact - Musculoskeletal Musculoskeletal: Present: gait normal, strength equal bilaterally, left sided weakness - Psychiatric Psychiatric: Present: A&O x's 3, appropriate affect, intact judgment & insight - Labs CBC & Chem 7: 12/24/20 06:45 Labs: Abnormal Lab Results - Last 24 Hours (Table) 12/23/20 12/24/20 Range/Units 12:18 06:45 WBC 13.1 H 16.0 H (3.8-10.6) k/uL RBC 3.72 L (3.80-5.40) m/uL Neutrophils # 9.8 H 12.4 H (1.3-7.7) k/uL Assessment and Plan Assessment: Doing well postoperative day #1 Plan: Continue postoperative care. Advanced diet and activity. Circumcision this morning. Likely discharge home tomorrow. Time with Patient: Less than 30
[2020-12-24] MEDS: KETOROLAC 15 MG/ML 1 ML VIAL IVP PRN (08:58)
--- NOTE | 2020-12-24 13:10 | P.MSEPDOC ---
Presenting Problems - Arrival Data Date of Arrival on Unit: 12/23/20 Time of Arrival on Unit: 11:44 Mode of Transport: Ambulatory - Complaint OB-Reason for Admission/Chief Complaint: Rule Out SROM Comment: Pt states leaking since 12/22 @2130, clear, small amounts, has worn a panty liner since Medical History - Information : 3 Para: 1 Term: 1 : 0 Abortions: Spontaneous or Elective: 1 Number of Living Children: 1 - Gestational Age Gestational Age by YESI (wks/days): 39 Weeks and 0 Days - History Complications: Prior Review of Systems - Review of Systems Constitutional: No problems Breast: No problems ENT: No problems Cardiovascular: No problems Respiratory: No problems Gastrointestinal: No problems Genitourinary: No problems Musculoskeletal: No problems Neurological: No problems Skin: No problems Vital Signs - Temperature Temperature: 98.1 F Temperature Source: Oral - Pulse Right Sitting Pulse Rate: 84 Pulse Assessment Method: Automatic Cuff - Respirations Respiratory Rate: 18 - Blood Pressure Right Arm Sitting Blood Pressure: 104/68 Blood Pressure Mean: 80 Blood Pressure Source: Automatic Cuff Medical Screen Scoring - Cervical Exam Dilation (cm): 1 Effacement (%): 80 Station: -2 - Assessment - Baby A Baseline FHR: 145 Heart Rate - NICHD Category: Category II (Indeterminate) NST: Non-reactive Physician Notification - Physician Notified Physician Notified Date: 12/23/20 Physician Notified Time: 10:48 Physician: Anita Xiao Order Received: Yes - Notification Comment Comment: Spk c\Dr. Xiao, advsd , 39 0/7, c/o possible SROM at 2130 on 12/22, amnisure negative, fluid at perinuem, SVE 1/80/-2, NRFHT. Request bedside assessment. Dr. Xiao presents to bedside, reviewed FHT, examined pt and provided orders for repeat section. Maternal Triage Index - Prompt/Priority 3 Prompt Priority 3: Yes Criteria Met for Priority 3: R/O SROM 39 0/7 Disposition - Disposition OB Disposition: Admit, LDRP Suite I agree with the RN Medical Screening Exam: Yes Case reviewed; plan agreed upon as documented in EMR&OBIX.: Yes Diagnosis: LOUSE-BORNE TYPHUS
[2020-12-25] MEDS: IBUPROFEN 600 MG TAB PO SCH ×2 (00:56→08:56)
[2020-12-25] MEDS: ACETAMINOPHEN TAB 500 MG TAB PO SCH (06:10)
--- NOTE | 2020-12-25 07:37 | P.DS ---
Providers Date of admission: 12/23/20 11:54 Expected date of discharge: 12/25/20 Attending physician: Anita Xiao Primary care physician: Stated None Hospital Course: This is a 25-year-old female 3 para 1011 EDC 12/30/2020 at 39 weeks gestation who presented with spontaneous amniorrhexis. She had previous low transverse section, contemplated , but heart tones were nonreactive and decision was made to proceed with primary low transverse section. Blood type is A-, rubella status immune. Please see dictated history and physical for details. Patient underwent a repeat low transverse section, giving to a liveborn male infant with scores of 8 and 9 at one and 5 minutes respectively. There was a nuchal cord 1. 7 pounds 5.5 ounces, 3330 g. Estimated blood loss 400 mL's. Please see dictated delivery note for details. This morning the patient is doing well. Incision is clean and dry, intact with Steri-Strips applied. Extremities are negative for edema. Incision appears healthy, fundus is firm, midline, symmetric, 18 week size. Breasts are not engorged. Chest is clear in all carvajal. infant has been circumcised and is doing well. Patient is judged to be in very good condition for discharge home. She will follow-up with me in the office in 2 weeks for incision check. I have reminded her no intercourse, tampons or douching. She will use [id number] Advil or Aleve, or Motrin as needed for pain. She will call with any fevers shakes or chills, foul smelling or copious lochia, with any pain not alleviated by [id number]-hri-[id number] products, with any incisional drainage or redness, or indeed with any concerns. Assessment: Doing well postoperative day number two Patient Condition at Discharge: Good Plan - Discharge Summary Discharge Rx Participant: No New Discharge Prescriptions: No Action Pnv No.95/Ferrous Fum/Folic AC [ Multivitamin Tablet] 1 each PO DAILY Aspirin 81 mg PO DAILY Discharge Medication List Aspirin 81 mg PO DAILY 12/15/19 [History] Pnv No.95/Ferrous Fum/Folic AC [ Multivitamin Tablet] 1 each PO DAILY 12/15/19 [History] Follow up Appointment(s)/Referral(s): Anita Xiao MD [STAFF PHYSICIAN] - 2 Weeks Discharge Disposition: HOME SELF-CARE
[2020-12-25] MEDS: SENNOSIDES-DOCUSATE SODIUM 1 EACH TAB PO SCH (08:56)
[2020-12-25 09:31] VITALS: BP 127/74; PULSE 72; RESP 20; TEMP 98.2
== END 2020-12-25 10:45 | disposition home or self-care (01) | DRG 788 ==
LOC: FBPOP 09:52 → 4FBP 11:54
PROVIDERS: ADMIT Obstetrics & Gynecology; ATTEND Obstetrics & Gynecology
PROC: 10D00Z1 Extraction of Products of Conception, Low, Open Approach (ICD-10-PCS; principal; 2020-12-23 12:20)
DX: O34.211 Maternal care for low transverse scar from previous cesarean delivery (principal); O69.81X0 Labor and delivery complicated by cord around neck, without compression, not applicable or unspecified; O76 Abnormality in fetal heart rate and rhythm complicating labor and delivery; Z37.0 Single live birth; Z3A.38 38 weeks gestation of pregnancy; Z79.82 Long term (current) use of aspirin; Z82.49 Family history of ischemic heart disease and other diseases of the circulatory system; Z82.62 Family history of osteoporosis; Z90.49 Acquired absence of other specified parts of digestive tract; E28.2 Polycystic ovarian syndrome; O99.824 Streptococcus B carrier state complicating childbirth
CPT/HCPCS: 59025; 84112; 85025; 85461; 86850; 86900; 86901; 99213

== ENCOUNTER 2022-07-29 19:00 | Outpatient (CLI) | payer OTHER ==
[2022-07-29 21:44] LABS: Appearance,Urine Cloudy (Clear); Bacteria,Urine Moderate /hpf; Bilirubin,Urine Negative (Negative); Blood,Urine Negative (Negative); Color,Urine Yellow; Glucose,Urine (UA) Negative (Negative); Hyaline Casts,Urine 1 /lpf (0-2); Ketones,Urine Negative (Negative); Leukocyte Esterase,Urine Large (Negative); Mucus,Urine Rare /hpf; Nitrite,Urine Negative (Negative); Protein,Urine Trace (Negative); RBC,Urine 3 /hpf (0-5); Specific Gravity,Urine 1.026 (1.001-1.035); Squamous Epithelial Cell,Urine 23 /hpf (0-4); Urobilinogen,Urine <2.0 mg/dL (<2.0); WBC,Urine 34 /hpf (0-5)
[2022-07-29 21:55] VITALS: BP 144/63; PULSE 88; RESP 16; TEMP 98.4
--- NOTE | 2022-08-24 14:02 | P.MSEPDOC ---
Presenting Problems - Arrival Data Date of Arrival on Unit: 07/29/22 Time of Arrival on Unit: 19:00 Mode of Transport: Ambulatory - Complaint OB-Reason for Admission/Chief Complaint: Rule Out PROM Comment: pt presentst to triage with complaints of "possibly leaking fluid". States last night felt wettness that was quarter sized clear. states this has continued all day. no large gushes. no odor or color but has been wearing a panty liner since around midnight last night. ( 19 hours). gbs unknown this preg but states was positive with other babies. Medical History - Information : 5 Para: 2 Term: 2 : 0 Abortions: Spontaneous or Elective: 2 Number of Living Children: 2 - Gestational Age Gestational Age by YESI (wks/days): 35 Weeks and 2 Days - History Complications: Prior Comment: prev preg preeclampsia Review of Systems - Review of Systems Constitutional: No problems Breast: No problems ENT: No problems Cardiovascular: No problems Respiratory: No problems Gastrointestinal: No problems Genitourinary: No problems Musculoskeletal: No problems Neurological: No problems Skin: No problems Vital Signs - Temperature Temperature: 98.4 F Temperature Source: Oral - Pulse Right Pulse Rate: 88 Pulse Assessment Method: Pulse Oximetry - Respirations Respiratory Rate: 16 Oxygen Delivery Method: Room Air O2 Sat by Pulse Oximetry: 98 - Blood Pressure Right Arm Blood Pressure: 144/63 Blood Pressure Mean: 90 Blood Pressure Source: Automatic Cuff - Comment Vital Signs Comment: repeat bp 107/55 Medical Screen Scoring - Cervical Exam Dilation (cm): 0 Effacement (%): 0 - Uterine Contractions Frequency From (mins): 3 Frequency To (mins): 8 Duration From (seconds): 30 Duration To (seconds): 60 Intensity: Mild Resting: Soft to palpation - Assessment - Baby A Baseline FHR: 135 Heart Rate - NICHD Category: Category I (Normal) NST: Reactive Physician Notification - Physician Notified Physician Notified Date: 07/29/22 Physician Notified Time: 20:56 Physician: Nelida Ibrahim New Order Received: Yes (discharge and UA c/s) - Notification Comment Comment: Dr Christopher updated with pts reason for visit suspected leaking of fluid. confimed negative amnisure. Cervix closed, thick soft with presenting part high. cat 1fhr with reactive nst. Scheduled appt tues [address] Xiao. irriatible contractions that pt feels as tightening but no pain. watery malodorous vag discharge noted. Orders received to run ua c/s and pt may discharge before resulted. pt is to return if. contractions become painful. Maternal Triage Index - Maternal Triage Index Presenting for scheduled procedure w/no complaint: No - Stat/Priority 1 Stat Priority 1: No - Urgent/Priority 2 Urgent Priority 2: Yes Provider Notified: Nelida Ibrahim Provider Notified Time: 20:56 Criteria Met for Priority 2: 35 weeks repeat c/s ?prom. amnisure neg Disposition - Disposition OB Disposition: Discharge to home Discharge Date: 07/29/22 Discharge Time: 21:00 I agree with the RN Medical Screening Exam: Yes Physician's MSE Comment: I have neither seen nor examined the patient Case reviewed; plan agreed upon as documented in EMR&OBIX.: Yes Diagnosis: RELATED CONDITIONS, UNSPECIFIED, THIRD TRIMESTER
== END 2022-07-29 21:00 | disposition home or self-care (01) ==
LOC: FBPOP 19:00
PROVIDERS: ATTEND Obstetrics & Gynecology
DX: O26.893 Other specified pregnancy related conditions, third trimester (principal); O34.219 Maternal care for unspecified type scar from previous cesarean delivery; Z3A.35 35 weeks gestation of pregnancy; Z91.048 Other nonmedicinal substance allergy status
CPT/HCPCS: 59025; 84112; 81001; 87086; G0463; 99213

== ENCOUNTER 2022-08-24 09:54 | Inpatient (IN) | payer OTHER ==
[2022-08-23 14:43] VITALS: BMI 44.9
[2022-08-24] MEDS ORDERED: METHYLERGONOVINE 0.2 MG/ML 1 ML AMP IM PRN (10:11)
[2022-08-24] MEDS ORDERED: CARBOPROST TROMETHAMINE 250 MCG/ML 1 ML AMP IM PRN (10:11)
[2022-08-24] MEDS ORDERED: TRANEXAMIC ACID IN NACL,ISO-OS 1,000 MG in EMPTY BAG 1 BAG IV PRN (10:11)
[2022-08-24] MEDS ORDERED: CITRIC ACID-SODIUM CITRATE 15 ML CUP PO ONE (10:11)
[2022-08-24] MEDS ORDERED: OXYTOCIN 10 UNIT/ML 1 ML VIAL IM PRN (10:11)
[2022-08-24] MEDS ORDERED: miSOPROStoL 200 MCG TAB PO PRN (10:11)
[2022-08-24] MEDS ORDERED: LACTATED RINGERS 1,000 ML IV ONE (10:11)
[2022-08-24] MEDS: LACTATED RINGERS 1,000 ML IV SCH ×4 (11:03→21:53)
[2022-08-24 11:28] LABS: Basophils # (A) 0.1 k/uL (0-0.2); Basophils % (A) 1 %; Eosinophils # (A) 0.2 k/uL (0-0.7); Eosinophils % (A) 2 %; HCT 36.7 % (34.0-46.0); HGB 12.4 gm/dL (11.4-16.0); Lymphocytes # (A) 1.7 k/uL (1.0-4.8); Lymphocytes % (A) 18 %; MCH 30.9 pg (25.0-35.0); MCHC 33.9 g/dL (31.0-37.0); MCV 91.3 fL (80.0-100.0); Mean Platelet Volume 7.1; Monocytes # (A) 0.6 k/uL (0-1.0); Monocytes % (A) 6 %; Neutrophils # (A) 6.9 k/uL (1.3-7.7); Neutrophils % (A) 71 %; Platelet Count 286 k/uL (150-450); RBC 4.02 m/uL (3.80-5.40); RDW 13.8 % (11.5-15.5); WBC 9.6 k/uL (3.8-10.6)
[2022-08-24] MEDS ORDERED: PHENYLEPHRINE-0.9% NACL SYG 1,000 MCG/10 ML SYRINGE ONE (12:14)
[2022-08-24] MEDS ORDERED: ONDANSETRON 4 MG/2 ML VIAL ONE (12:14)
[2022-08-24] MEDS ORDERED: KETOROLAC 15 MG/ML 1 ML VIAL ONE (12:14)
[2022-08-24] MEDS ORDERED: OXYTOCIN 30 UNITS/500 ML NS BAG IV ONE (12:14)
[2022-08-24] MEDS ORDERED: MORPHINE SULFATE (PF) 0.3 MG/0.3 ML SYR ONE (12:14)
--- NOTE | 2022-08-24 12:19 | P.HPOB ---
History of Present Illness H&P Date: 08/24/22 Chief Complaint: here for repeat section and tubal removal This is a 26-year-old female 5 para 20-2 EDC 08/31/2022 who presents at 39 weeks gestation for repeat section and bilateral salpingectomies for undesired fertility. Fetus is been active throughout the . She denies vaginal bleeding or fluid leakage. She understands the permanent nature of salpingectomies. Past medical history is significant for migraine headache, history of PIH in previous pregnancies. Past surgical history section 2019, 2020 appendectomy 2016. Current medications: baby aspirin daily, vitamin daily ALLERGIES none known. Family history significant for hypertension. Social history patient has never been a smoker, father of the baby is present and involved, she denies alcohol or drug use. On exam patient is 5 foot 2 inches, 246 pounds, blood pressure 128/77. General physical exam is within normal limits. Extremities are negative for edema. Chest is current all carvajal. heart rate is consistent with reactive NST. Infant is vertex to Cassius's maneuvers. Extremities reveal no edema. Impression: 39 week intrauterine , 2 previous sections, undesired fertility, requesting repeat low transverse section and bilateral salpingectomies. All signs reassuring. Plan: We'll proceed with repeat low transverse section, bilateral salpingectomies. All risks benefits and alternatives are reviewed. All questions answered. Anesthesia present. Antibiotics given. Review of Systems Constitutional: Reports as per HPI Past Medical History Past Medical History: No Reported History Additional Past Medical History / Comment(s): PCOS. Hx Preeclampsia with first 2 pregnancies. History of Any Multi-Drug Resistant Organisms: None Reported Past Surgical History: Appendectomy, Section Additional Past Surgical History / Comment(s): Section X2. Past Anesthesia/Blood Transfusion Reactions: No Reported Reaction Past Psychological History: No Psychological Hx Reported Smoking Status: Never smoker Past Alcohol Use History: None Reported Past Drug Use History: None Reported - Past Family History Mother Family Medical History: Hypertension, Musculoskeletal Disorder Additional Family Medical History / Comment(s): Osteoporosis. Father History Unknown: Yes Family Medical History: Hypertension Medications and Allergies Home Medications Medication Instructions Recorded Confirmed Type Pnv No.95/Ferrous Fum/Folic AC 1 tab PO DAILY 12/15/19 08/24/22 History [ Multivitamin Tablet] Sertraline [Zoloft] 50 mg PO DAILY 08/23/22 08/24/22 History Allergies Allergy/AdvReac Type Severity Reaction Status Date / Time Tape Allergy Rash/Hives Uncoded 08/24/22 10:54 Exam Vital Signs Temp Pulse Resp BP 08/24/22 10:10 97.4 F L 99 14 123/77 Intake and Output 08/23/22 08/24/22 08/24/22 22:59 06:59 14:59 Other: Weight 111.584 kg See dictation under HPI please Results Result Diagrams: 08/24/22 11:15 Assessment and Plan Assessment: 39 week intrauterine , 2 previous sections, undesired fertility. Plan: For repeat low transverse section at this point, bilateral salpingectomies per patient's request. Time with Patient: Less than 30
[2022-08-24] MEDS ORDERED: diphenhydrAMINE 25 MG CAP PO PRN (13:18)
[2022-08-24] MEDS ORDERED: diphenhydrAMINE 50 MG CAP PO PRN (13:18)
[2022-08-24] MEDS ORDERED: ZOLPIDEM 5 MG TAB PO PRN (13:18)
[2022-08-24] MEDS ORDERED: diphenhydrAMINE 50 MG/ML 1 ML VIAL IVP PRN ×2 (13:18)
[2022-08-24] MEDS ORDERED: SIMETHICONE 80 MG CHEWABLE PO PRN (13:18)
[2022-08-24] MEDS ORDERED: NALOXONE 0.4 MG/ML 1 ML VIAL IV PRN (13:18)
[2022-08-24] MEDS ORDERED: ONDANSETRON 4 MG/2 ML VIAL IVP PRN (13:18)
[2022-08-24] MEDS ORDERED: METOCLOPRAMIDE 5 MG/ML 2 ML VIAL IVP PRN (13:18)
--- NOTE | 2022-08-24 13:18 | P.OP ---
Date of Procedure: 08/24/22 Preoperative Diagnosis: 39 week intrauterine , 2 previous sections, declining , undesired fertility Postoperative Diagnosis: Same, liveborn male infant, nuchal cord 1 Procedure(s) Performed: Repeat low transverse section, bilateral salpingectomies Anesthesia: spinal Surgeon: nAita Xiao Sleeping Car Conductor #1: Laine June Estimated Blood Loss (ml): 650 IV fluids (ml): 1,000 Urine output (ml): 100 Pathology: other (Bilateral fallopian tubes) Condition: stable Disposition: PACU Description of Procedure: Patient is brought to bring suite where a spinal with Duramorph out difficulty per the anesthesia team. She's placed in the dorsal supine position with left lateral uterine displacement. Antibiotics given. Oneal catheter to direct drainage. The abdomen is prepped and draped in usual sterile fashion. The appropriate timeout is performed to assure proper patient and procedural identification. Analgesia is checked and noted to be adequate. A repeat low transverse skin incision is made and carried down through the subcutaneous tissue which is approximately 8 cm deep. Fascia is isolated, scored, extended bilaterally with curved Bach scissors. Peritoneum is next identified and incised, there is no bowel or bladder involvement. Bladder flap is created with Metzenbaum scissors as a result small amount of scarring from previous surgeries. When this is secure and safe, repeat low transverse uterine incision is made, artificial amniorrhexis reveals clear fluid, the incision is extended bluntly. The 's head is delivered in the occiput anterior position. There is a nuchal cord 1 that is reduced. Patient is delivered of a liveborn male infant with scores of 8 and 9 at one and 5 minutes respectively. Umbilical cord is doubly clamped and ligated, he is handed to waiting nurses for evaluation. The placenta delivers manually, it is inspected and noted to be intact with trivascular cord. Uterus is then swept clean with a sterile sponge to avoid any retained products of conception. It is externalized. The edges of the incision are grasped with Pierre clamps and the uterus is closed in a full-thickness single-layer with a running locking stitch of 0 Vicryl, excellent reapproximation. Patient's wish for bilateral salpingectomies is once again confirmed. The LigaSure is used in the appropriate fashion, and both tubes are removed through this nasal salpinges to the cornual bases at the uterus. They're sent to pathology for evaluation. Ovaries appear normal bilaterally. Hemostasis is excellent. The abdomen is now suctioned with suction on guard posterior to the uterus. Uterus is placed back into the abdominal cavity, bilateral gutters are inspected and cleaned. Uterine incision is slightly hemorrhagic, no obvious bleeders, surgical's no is placed with excellent and immediate results. Peritoneum is allowed to close by secondary intention. Fascia is closed in a running stitch of 0 Vicryl suture with over ligation in the midline. Subcutaneous tissue is inspected, clean and dry. It is reapproximated with 2-0 Vicryl in a running stitch. 4-0 undyed Monocryl is used for final skin closure in a subcuticular manner. Mastisol and Steri-Strips are applied to the wound along with a dressing. Oneal is noted to be draining clear urine. All sponge needle and enhancement counts are correct at the end of the procedure. Patient is brought back to the recovery room in stable condition with a pulse of 88, respirations 16, 100% O2 saturation, blood pressure 118/62. She is requesting circumcision for her infant son.
[2022-08-24] MEDS: ACETAMINOPHEN TAB 500 MG TAB PO SCH (15:40)
[2022-08-24] MEDS: SENNOSIDES-DOCUSATE SODIUM 1 EACH TAB PO SCH (20:32)
[2022-08-24] MEDS: IBUPROFEN 600 MG TAB PO SCH (20:32)
[2022-08-25] MEDS: ACETAMINOPHEN TAB 500 MG TAB PO SCH ×4 (00:06→15:55)
[2022-08-25] MEDS: IBUPROFEN 600 MG TAB PO SCH ×4 (03:08→23:40)
[2022-08-25] MEDS: LACTATED RINGERS 1,000 ML IV SCH ×3 (06:36→23:39)
[2022-08-25 07:17] LABS: Basophils # (A) 0.1 k/uL (0-0.2); Basophils % (A) 0 %; Eosinophils # (A) 0.1 k/uL (0-0.7); Eosinophils % (A) 1 %; HCT 30.5 % (34.0-46.0); HGB 10.5 gm/dL (11.4-16.0); Lymphocytes # (A) 1.5 k/uL (1.0-4.8); Lymphocytes % (A) 12 %; MCHC 34.6 g/dL (31.0-37.0); MCV 92.5 fL (80.0-100.0); Mean Platelet Volume 7.8; Monocytes # (A) 0.8 k/uL (0-1.0); Monocytes % (A) 7 %; Neutrophils # (A) 9.6 k/uL (1.3-7.7); Neutrophils % (A) 78 %; Platelet Count 221 k/uL (150-450); RDW 13.9 % (11.5-15.5); WBC 12.3 k/uL (3.8-10.6)
--- NOTE | 2022-08-25 08:00 | P.PN ---
Progress Note - Text Progress Note Date: 08/25/22 Postoperative day 1 status post section under spinal anesthesia, and i ntrathecal morphine given for postoperative analgesia, patient doing well, there is no anesthesia related complications, Patient had no headache, vital signs stable , Assessment and plan= postop day 1 status post , doing well there is no anesthesia related complication.
--- NOTE | 2022-08-25 08:08 | P.PN ---
Subjective Progress Note Date: 08/25/22 Principal diagnosis: Doing well postoperative day #1 Objective - Vital Signs Vital signs: Vital Signs Temp 98.7 F 08/25/22 03:29 Pulse 93 08/25/22 03:29 Resp 16 08/25/22 03:29 BP 136/84 08/25/22 03:29 Pulse Ox 97 08/24/22 20:00 FiO2 Intake & Output 08/24/22 08/25/22 08/25/22 18:59 06:59 18:59 Output Total 709 850 Balance -709 -850 Weight 111.584 kg Output: Urine 850 Uretheral (Oneal) 400 Estimated Blood Loss 59 Output, Quantitative 650 Blood Loss Other: Voiding Method Indwelling Catheter # Voids 2 - Constitutional General appearance: Present: morbidly obese - EENT Eyes: Present: PERRLA ENT: Present: hearing grossly normal - Neck Thyroid: bilateral: normal size - Respiratory Respiratory: bilateral: CTA - Cardiovascular Rhythm: regular - Gastrointestinal General gastrointestinal: Present: normal bowel sounds - Integumentary Integumentary Comment(s): Incision clean and dry, intact, Steri-Strips applied. Fundus firm, midline, symmetric, 18 week size. Integumentary: Present: normal - Neurologic Neurologic: Present: CNII-XII intact - Musculoskeletal Musculoskeletal: Present: gait normal, strength equal bilaterally - Psychiatric Psychiatric: Present: A&O x's 3, appropriate affect, intact judgment & insight - Labs CBC & Chem 7: 08/25/22 06:58 Labs: Abnormal Lab Results - Last 24 Hours (Table) 08/25/22 Range/Units 06:58 WBC 12.3 H (3.8-10.6) k/uL RBC 3.30 L (3.80-5.40) m/uL Hgb 10.5 L (11.4-16.0) gm/dL Hct 30.5 L (34.0-46.0) % Neutrophils # 9.6 H (1.3-7.7) k/uL Assessment and Plan Assessment: Doing well postoperative day #1 Plan: Advance diet and activity. Patient may shower. Continue postoperative care. Likely discharge home tomorrow. Circumcision performed this morning. Time with Patient: Less than 30
[2022-08-25] MEDS: SENNOSIDES-DOCUSATE SODIUM 1 EACH TAB PO SCH ×2 (10:08→23:38)
[2022-08-25 13:42] VITALS: RESP 16
[2022-08-26] MEDS: ACETAMINOPHEN TAB 500 MG TAB PO SCH ×2 (00:13→05:32)
[2022-08-26] MEDS: IBUPROFEN 600 MG TAB PO SCH ×2 (02:03→08:09)
[2022-08-26] MEDS: SENNOSIDES-DOCUSATE SODIUM 1 EACH TAB PO SCH (08:13)
[2022-08-26 08:15] VITALS: BP 111/76; PULSE 68; TEMP 98.3
--- NOTE | 2022-08-26 11:06 | P.DS ---
Providers Date of admission: 08/24/22 09:54 Expected date of discharge: 08/26/22 Attending physician: Anita Xiao Primary care physician: Stated None Hospital Course: This is a 26 year old now POD#s s/p schedule repeat section with bilateral salpingectomy. She desires discharge home today. The patient is doing well this morning and had no acute events overnight. She has no complaints this morning. She reports minimal lochia, passing flatus, voiding without difficulty, ambulating, and eating/drinking without nausea or vomiting. Infant doing well at bedside, s/p circumcision. She denies chest pain, shortness of breathing, fevers, or chills overnight. She denies pain or swelling in the legs. Postoperative restrictions are reviewed with the patient including pelvic rest for 6 weeks, no lifting heavier than 15 pounds for 6 weeks. The patient is encouraged to call the office if she experiences any heavy bleeding, foul- smelling discharge, breast complaints, or any if she has any other concerns. She will follow up in the office with Dr. Xiao in 2 weeks for postoperative exam. All questions are answered. Assessment: 26 year old now POD#2 s/p scheduled repeat section with bilateral salpingectomy without complications Patient Condition at Discharge: Good Plan - Discharge Summary Discharge Rx Participant: No New Discharge Prescriptions: New Acetaminophen Tab [Tylenol] 650 mg PO Q6H PRN #30 tab PRN Reason: Mild Pain (Scale 1 To 3) Ibuprofen [Motrin] 600 mg PO Q6HR PRN #30 tab PRN Reason: Mild Pain (Scale 1 To 3) No Action Pnv No.95/Ferrous Fum/Folic AC [ Multivitamin Tablet] 1 tab PO DAILY Sertraline [Zoloft] 50 mg PO DAILY Discharge Medication List Pnv No.95/Ferrous Fum/Folic AC [ Multivitamin Tablet] 1 tab PO DAILY 12/15/19 [History] Sertraline [Zoloft] 50 mg PO DAILY 08/23/22 [History] Acetaminophen Tab [Tylenol] 650 mg PO Q6H PRN #30 tab 08/26/22 [Rx] Ibuprofen [Motrin] 600 mg PO Q6HR PRN #30 tab 08/26/22 [Rx] Follow up Appointment(s)/Referral(s): Anita Xiao MD [STAFF PHYSICIAN] - 2 Weeks Patient Instructions/Handouts: (DC), Depression (DC), Bleeding (DC) Activity/Diet/Wound Care/Special Instructions: Pelvic rest x 6 weeks, no heavy lifting more than 15 pounds x 6 weeks Discharge Disposition: HOME SELF-CARE
== END 2022-08-26 11:50 | disposition home or self-care (01) | DRG 539 ==
LOC: 4FBP 09:54
PROVIDERS: ADMIT Obstetrics & Gynecology; ATTEND Obstetrics & Gynecology
PROC: 10D00Z1 Extraction of Products of Conception, Low, Open Approach (ICD-10-PCS; principal; 2022-08-24 12:00)
PROC: 0UB70ZZ Excision of Bilateral Fallopian Tubes, Open Approach (ICD-10-PCS; principal; 2022-08-24 12:00)
DX: O34.211 Maternal care for low transverse scar from previous cesarean delivery (principal); O99.284 Endocrine, nutritional and metabolic diseases complicating childbirth; E28.2 Polycystic ovarian syndrome; O69.81X0 Labor and delivery complicated by cord around neck, without compression, not applicable or unspecified; Z79.82 Long term (current) use of aspirin; Z79.899 Other long term (current) drug therapy; Z87.59 Personal history of other complications of pregnancy, childbirth and the puerperium; Z28.310 Unvaccinated for COVID-19; Z30.2 Encounter for sterilization; Z3A.39 39 weeks gestation of pregnancy; Z37.0 Single live birth
CPT/HCPCS: 85025; 86850; 86900; 86901; 88302

== ENCOUNTER → 2024-10-23 | Outpatient (CLI) | payer OTHER ==
--- NOTE | 2024-11-08 14:39 | EST ---
EXERCISE STRESS STUDY PERFORMED: Event monitor. The patient was monitored between the to 05 November 2024. CLINICAL INFORMATION: Baseline rhythm is a sinus mechanism with borderline first-degree AV block. The average rate is 79 beats per minute, minimum 48, maximum 156 beats per minute. No atrial fibrillation was noted. Ventricular ectopic burden is less than 1%. Symptoms of shortness of breath, dizziness correlated with sinus mechanism. CONCLUSION: 1. Sinus mechanism, baseline rhythm. 2. Rare ventricular ectopic activity. 3. Symptoms did not correlate with any dysrhythmia. MMODL / IJN: [id number] /
== END | disposition home or self-care (01) ==
LOC: RADECHMAIN 13:33
PROVIDERS: ATTEND Family Medicine
DX: I44.0 Atrioventricular block, first degree (principal); I49.3 Ventricular premature depolarization; I47.9 Paroxysmal tachycardia, unspecified
CPT/HCPCS: 93270